=== PATIENT | male | born 1960 | race Caucasian/White ===

== ENCOUNTER 2017-10-30 17:29 | Observation (INO) | payer MEDICARE, OTHER ==
[~2017-10-30] VITALS: Ht 172.7 cm; Wt 71.2 kg
[~2017-10-30 17:29] MED LIST: ASPIRIN EC325 MG PO; ATENOLOL100 MG PO; CLOPIDOGREL75 MG PO; FLUOXETINE HCL20 MG PO; LISINOPRIL-HCT1 EAC2; LOVASTATIN40 MG PO; METFORMIN HCL1000 MG PO; NEURONTIN100 MG PO; NITROGLYCERIN0.4 MG SL
[2017-10-30] MEDS ORDERED: ATENOLOL50 MG PO (21:26)
[2017-10-30] MEDS ORDERED: LISINOPRIL-HCT1 EAC1 PO (21:27)
--- NOTE | 2017-10-30 22:23 | NUR ---
REPORT RECEIVED FROM ED RN, AVERY. PT ARRIVED TO FLOOR VIA STRETCHER, WAS ABLE TO STAND AND TRANSFER SELF TO BED. PT IS ALERT/ORIENTED, OLD LEFT FACIAL DROOP PRESENT. STRENGTH EQUAL BILATERALLY IN UPPER AND LOWER EXTREMITIES. PT HAS NEUROPATHY IN BLE, REPORTS TINGLING. REQUESTS HIS GABABPENTIN, CALLED DR. MUSA AND GOT THIS ADDED TO ORDERS. LUNGS CLEAR, RA. HR REGULAR. BOWEL TONES ACTIVE, DENIES NAUSEA. DENIES DIZZINESS. IV PATENT, IVF STARTED. SKIN GROSSLY INTACT, SMALL RASH NOTED TO CHEST. PT REQUESTS SOMETHING TO EAT, WILL PROVIDE SANDWICH. PT INSTRUCTED TO USE CALL LIGHT, DENIES FURTHER REQUESTS AT THIS TIME.
--- NOTE | 2017-10-31 01:12 | NUR ---
PT SLEEPING, WOKE EASILY. ASSESSMENT COMPLETED. NEURO ASSESSMENT UNCHANGED FROM PREVIOUS. WHEEZE NOTED IN UPPER/LOWER RIGHT LOBES, RA. NO OTHER CHANGES FROM PREVIOUS ASSESSMENT. WILL CONTINUE TO MONITOR.
--- NOTE | 2017-10-31 03:08 | NUR ---
CHECKED IN ON PT WHO APPEARS TO BE SLEEPING, NO APPARENT DISTRESS. RR:19, RESPIRATIONS EVEN AND UNLABORED. SPO2: 95% ON RA. WILL ALLOW FOR REST AND CONTINUE TO MONITOR.
--- NOTE | 2017-10-31 04:55 | NUR ---
CHECKED IN ON PT WHO WAS AWAKE AND WATCHING TV. UP TO BATHROOM WITH SBA, VOIDED 450ML AND THEN RETURNED TO BED. ASSESSMENT COMPLETED. NEURO CHECK UNCHANGED. LUNGS SOUND CLEAR, SLIGHTLY DIM IN BASES, REMAINS ON RA. NO OTHER CHAGES FROM PREVIOUS ASSESSMENT. PT PROVIDED WITH COFFEE PER REQUEST AND NOW DENIES FURTHER NEEDS. WILL CONTINUE TO MONITOR.
--- NOTE | 2017-10-31 05:41 | NUR ---
IN TO START NEW IV, 20G PLACED ON SECOND ATTEMPT IN RIGHT WRIST USING ASEPTIC TECHNIQUE. PT TOLERATED WELL. IVF SWITCHED TO NEW IV SITE AND FIELD START SALINE LOCKED.
--- NOTE | 2017-10-31 08:12 | NUR ---
PATIENT AWAKE AND EATING BREAKFAST AT THIS TIME. PT IN GOOD SPIRITS. PT ABLE TO TAKE ORAL PILLS WITHOUT DIFFICUTLY. CBG 113, NO INSULIN REQUIRED. ASSESSMENT COMPLETE AT THIS TIME.
--- NOTE | 2017-10-31 14:57 | NUR ---
PATIENT UP TO SHOWER AT THIS TIME. DR. MUSA IN ROOM TO SEE PATIENT. PT WILL BE SENT HOME THIS AFTERNOON. TELE D/C AT THIS TIME.
[2017-10-31] MEDS ORDERED: ASPIRIN EC325 MG PO (14:59)
[2017-10-31] MEDS ORDERED: LOVASTATIN40 MG PO (14:59)
[2017-10-31] MEDS ORDERED: METFORMIN HCL1000 MG PO (15:00)
[2017-10-31] MEDS ORDERED: AMLODIPINE BESYL5 MG PO (15:00)
--- NOTE | 2017-11-01 21:21 | EKG ---
[facility] [address] [place] [address] Signed Normal sinus rhythm Nonspecific ST abnormality Abnormal ECG When compared with ECG of 02-DEC-2016 15:56, No significant change was found Confirmed by HELADIO MUSA MD ([id number]) on 11/01/2017 9:20:57 PM Electronically Signed By: HELADIO MUSA MD 11/01/172120 PATIENT NAME: MADDOXFIDE Electrocardiogram DATE OF : 60 PHYSICIAN: HELADIO MUSA MD REPORT #: [id number] REPORT IS CONFIDENTIAL AND NOT TO BE RELEASED WITHOUT AUTHORIZATION
[2018-03-29] MEDS ORDERED: DULCOLAX STOOL100 M1 PO (12:00)
== END 2017-10-31 16:05 | disposition home or self-care (01) ==
LOC: ED 17:29 → CCU 17:30
PROVIDERS: ADMIT Internal Medicine
DX: G45.9 Transient cerebral ischemic attack, unspecified (principal); I69.322 Dysarthria following cerebral infarction; I69.392 Facial weakness following cerebral infarction; I25.2 Old myocardial infarction; F17.200 Nicotine dependence, unspecified, uncomplicated; E11.51 Type 2 diabetes mellitus with diabetic peripheral angiopathy without gangrene; I25.10 Atherosclerotic heart disease of native coronary artery without angina pectoris; I10 Essential (primary) hypertension; E78.5 Hyperlipidemia, unspecified; F32.9 Major depressive disorder, single episode, unspecified; D50.9 Iron deficiency anemia, unspecified; E11.40 Type 2 diabetes mellitus with diabetic neuropathy, unspecified; Z79.84 Long term (current) use of 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; Z66 Do not resuscitate; Z95.1 Presence of aortocoronary bypass graft; Z95.5 Presence of coronary angioplasty implant and graft; Z79.82 Long term (current) use of aspirin; Z79.899 Other long term (current) drug therapy
CPT/HCPCS: 36415; 70450; 70496; 70498; 71045; 80053; 80061; 81001; 83036; 83605; 84484; 85025; 85610; 85730; 86850; 86900; 86901; 93005; 93010; 96360; 96361; 99285; G0008; G0378; J7120; Q9967

== ENCOUNTER 2018-02-05 10:14 | Inpatient (IN) | payer MEDICARE, OTHER ==
[~2018-02-05] VITALS: Ht 172.7 cm; Wt 71.5 kg
--- OUTSIDE RECORDS SUMMARY | ~2018-02-05 | XMS | Clinical Summary ---
Demographics + + + | Address | [address] | | | [place] [address] | + + + | Home Phone | | + + + | Preferred Language | Unknown | + + + | Marital Status | | + + + | Zoroastrianism Affiliation | Unknown | + + + | Race | Unknown | + + + | Ethnic Group | Unknown | + + + Author + + + | Author | [employer] | + + + | Organization | [facility] | + + + | Address | Unknown | + + + | Phone | Unavailable | + + + Support + + + + + | Name | Relationship | Address | Phone | + + + + + | Edita Cherry | ECON | [address] | | | | | [place] | | | | | [phone] | | + + + + + | Masood Maddox | ECON | Unknown | | + + + + + Care Team Providers + +------+ + | Care Fiber Product Cutting Machine Operator Name | Role | Phone | + +------+ + | Gonzalo Mckeon MD | PP | Unavailable | + +------+ + Allergies + + + + + + | Active Allergy | Reactions | Severity | Noted | Comments | | | | | Date | | + + + + + + | Amoxicillin | Diarrhea | Low | 04/20/20 | | | | | | 16 | | + + + + + + Current Medications + + +---------+---------+------+------+-------+ | Prescription | Sig. | Disp. | Refills | Star | End | Statu | | | | | | t | Date | s | | | | | | Date | | | + + +---------+---------+------+------+-------+ | atenolol | Take 100 mg by mouth | | | | | Activ | | (TENORMIN) 100 MG | 2 (two) times | | | | | e | | tablet | daily. | | | | | | + + +---------+---------+------+------+-------+ | FLUoxetine | Take 40 mg by mouth | | | | | Activ | | (PROZAC) 40 MG | daily. | | | | | e | | capsule | | | | | | | + + +---------+---------+------+------+-------+ | lovastatin | Take 40 mg by mouth | | | | | Activ | | (MEVACOR) 40 MG | nightly. | | | | | e | | tablet | | | | | | | + + +---------+---------+------+------+-------+ | nitroGLYCERIN | Place 0.4 mg under | | | | | Activ | | (NITROSTAT) 0.4 MG | the tongue every 5 | | | | | e | | SL tablet | (five) minutes as | | | | | | | | needed for Chest | | | | | | | | pain. | | | | | | + + +---------+---------+------+------+-------+ | metFORMIN | Take 1 tablet by | | | 05/2 | | Activ | | (GLUCOPHAGE) 1000 MG | mouth daily. | | | 7/20 | | e | | tablet | | | | 15 | | | + + +---------+---------+------+------+-------+ | ascorbic acid | Take 500 mg by mouth | | | | | Activ | | (VITAMIN C) 500 MG | daily. | | | | | e | | tablet | | | | | | | + + +---------+---------+------+------+-------+ | Calcium | Take 600 mg by mouth | | | | | Activ | | Carb-Cholecalciferol | daily. | | | | | e | | 600-800 MG-UNIT | | | | | | | | TABS | | | | | | | + + +---------+---------+------+------+-------+ | | Take 1 tablet by | | | | | Activ | | lisinopril-hydrochlo | mouth daily. | | | | | e | | rothiazide | | | | | | | | (PRINZIDE,ZESTORETIC | | | | | | | | ) 20-25 MG per | | | | | | | | tablet | | | | | | | + + +---------+---------+------+------+-------+ | glipiZIDE | Take 5 mg by mouth 2 | | | | | Activ | | (GLUCOTROL) 5 MG | (two) times daily | | | | | e | | tablet | before meals. | | | | | | + + +---------+---------+------+------+-------+ | gabapentin | Take 2 capsules by | 90 | 0 | 02/2 | | Activ | | (NEURONTIN) 100 MG | mouth 3 (three) | capsule | | 6/20 | | e | | capsule | times daily. | | | 17 | | | + + +---------+---------+------+------+-------+ | hydrALAZINE | Take 1 tablet by | 90 | 0 | 02/2 | | Activ | | (APRESOLINE) 50 MG | mouth 3 (three) | tablet | | 6/20 | | e | | tablet | times daily. | | | 17 | | | + + +---------+---------+------+------+-------+ | ferrous sulfate, | Take 1 tablet by | 60 | 0 | 02/2 | | Activ | | 65 FE, 324 (65 FE) | mouth 2 (two) times | tablet | | 6/20 | | e | | MG EC tablet | daily with meals. 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 55yo WM, with exertional | | shortness of breath, fatigue. He has poor balance, states some | | form of neuropathy, and relates with the assistance of a walker. | | Unfortunately he continues to smoke, approximately one pack of | | cigars per day. Long history of smoking. He is known to have | | coronary artery disease, distant bypass surgery, and then | | angioplasty and stenting on 2 different occasions. He does not | | have significant edema, there is no orthopnea or PND. He is | | unaware of any palpitations, or lightheadedness. Denies any | | significant chest discomfort. He recently ran out of Plavix. | | Despite his cardiac history, he denies any history of congestive | | heart failure, congenital heart disease, rheumatic heart disease, | | palpitations, or syncope. Today we obtained his previous | | medical records. We had him resume his Plavix 75 mg daily, this | | due to his stents burden. Smoking cessation is strongly | | encouraged. Labs are requested. We'll have him back after labs | | have been obtained, other recommendations to follow.Hx CABG (St | | Mathieu Murphys): 06/10/2006, CABG*4 (HINES to LAD, radial | | artery graft to LPLA, SVG to D1/OM1.Hx PCI/stent: 07/15/2009, SVG | | to D1 (4.0*16mm, 3.5*32mm Taxus Liberte NIRU's). | | 03/03/2015, SVG to D1 (4.0*16mm Promus Premier, 4.0*22 | | Resolute Integrity, 4.0*20mm Promus Premier, 2.25*16mm Promus | | Premier).Hx Pacemaker/ICD: noLast Cath, 03/03/2015: LAD/LCx | | occluded, severe RCA. HINES to LAD patent, radial graft to LPLA | | occluded, SVG to D1/OM1 severe in-stent restenosis. SVG | | stented.Last Echo: naLast Stress Test, 03/02/2015: Lexiscan, | | anterior ischemia, LVEF 48%.ECG, 03/04/2015: sinus rhythm, 65bpm, | | PRWP, IVCD, diffuse non-spec ST-T changes. | + + + + + | COPD (chronic obstructive pulmonary disease) | 01/29/2016 | + + + + + | Last Assessment & Plan: COPD, smoker. | + + + + + | Diabetes mellitus, type II | 03/01/2015 | + + + + + | Last Assessment & Plan: DM2, managed by PCP. | + + + + + | HTN (hypertension) | 03/01/2015 | + + + + + | Last Assessment & Plan: Hypertension, controlled, continue | | current meds at current dose (atenolol, lisinopril | | | | HCT). | + + + + + | Dyslipidemia | 03/01/2015 | + + + + + | Last Assessment & Plan: Hyperlipidemia, continue current meds | | at current dose (lovastatin). Lipid panel pending. | + + Resolved Problems + + + + | Problem | Noted | Resolved | | | Date | Date | + + + + | Chest pain | 03/01/20 | | | | 15 | 5 | + + + + Family History + + +------+ + | Medical History | Relation | Name | Comments | + + +------+ + | Cancer | Brother | | | + + +------+ + | Cancer | Mother | | | + + +------+ + | Diabetes type II | Mother | | | + + +------+ + | Hypertension | Mother | | | + + +------+ + | Cancer | Sister | | | + + +------+ + + +------+ + + | Relation | Name | Status | Comments | + +------+ + + | Brother | | Alive | CAD, CVA, DMII, HTN, Hyperlipidemia | + +------+ + + | Daughter | | Alive | | + +------+ + + | Father | | | CVA | | | | (Age | | | | | 65) | | + +------+ + + | Mother | | | lung CA (smoker),DMII,HTN | | | | (Age | | | | | 68) | | + +------+ + + | Sister | | Alive | | + +------+ + + Social History + +-------+ +--------+------+ | Tobacco Use | Types | Packs/Day | Years | Date | | | | | Used | | + +-------+ +--------+------+ | Current Every Day | | 1 | 30 | | | Smoker | | | | | + +-------+ +--------+------+ + +---+---+---+ | Smokeless Tobacco: | | | | | Never Used | | | | + +---+---+---+ + + | Tobacco Cessation: Ready to Quit: No; Counseling Given: Yes | + + + + +---------+ + | Alcohol Use | Drinks/We | oz/Week | Comments | | | ek | | | + + +---------+ + | No | 0 | 0.0 | heavy drinker in past hx., quit @ age: 28 | | | Standard | | yrs. old | | | drinks or | | | | | | | | | | equivalen | | | | | t | | | + + +---------+ + + + + | Sex Assigned at | Date Recorded | | | | + + + | Not on file | | + + + Last Filed Vital Signs + + + + | Vital Sign | Reading | Time Taken | + + + + | Blood Pressure | 141/65 | 12/07/2016 1:10 PM PST | + + + + | Pulse | 65 | 12/07/2016 1:10 PM PST | + + + + | Temperature | 36.7 C (98 F) | 12/07/2016 11:03 AM PST | + + + + | Respiratory Rate | 18 | 12/07/2016 11:03 AM PST | + + + + | Oxygen Saturation | 95% | 12/07/2016 11:03 AM PST | + + + + | Inhaled Oxygen | - | - | | Concentration | | | + + + + | Weight | 77.6 kg (171 lb 1.2 | 12/04/2016 4:24 AM PST | | | oz) | | + + + + | Height | 172.7 cm (5' 8") | 12/02/2016 10:09 PM PST | + + + + | Body Mass Index | 26.01 | 12/04/2016 4:24 AM PST | + + + + Plan of Treatment + + + + + | Health Maintenance | Due Date | Last Done | Comments | + + + + + | Diabetic Eye Exam | | | | | | 0 | | | + + + + + | Diabetic Foot Exam | | | | | | 0 | | | + + + + + | Microalbumin | | | | | Screening | 0 | | | + + + + + | Vaccine: | | | | | Dtap/Tdap/Td (1 - | 9 | | | | Tdap) | | | | + + + + + | Vaccine: | | | | | Pneumococcal 19-64 | 9 | | | | (PPSV23 only) Medium | | | | | Risk (1 of 1 - | | | | | PPSV23) | | | | + + + + + | Colon Cancer | | | | | Screening | 0 | | | | (Colonoscopy) | | | | + + + + + | Hemoglobin A1c | | 12/02/2016, 08/14/2016, | | | | 7 | 03/01/2015 | | + + + + + | Vaccine: Influenza | | | | | (Season Ended) | 8 | | | + + + + + Implants + +-------+------+ +--------+--------+--------+ | Implanted | Type | Area | Manufacture | Device | Expira | Model | | | | | r | | tion | / | | | | | | Identi | Date | Serial | | | | | | fier | | / Lot | + +-------+------+ +--------+--------+--------+ | Promus | Stent | | | | | / | | Premier-08/15/2016Implanted: | | | | | | /[id number] | | Qty: 1 on 08/15/2016 by | | | | | | [phone] | | Shalini Cabello MD | | | | | | | + +-------+------+ +--------+--------+--------+ Results Not on filefrom Last 3 Months Insurance + +--------+ +------+-------+ + | Payer | Benefi | Subscriber | Type | Phone | Address | | | t Plan | ID | | | | | | / | | | | | | | Group | | | | | + +--------+ +------+-------+ + | MEDICARE | MEDICA | xxxxxxxxxx | | | [address] | | | RE | | | | [place] [phone] | | | IP-OP | | | | | + +--------+ +------+-------+ + | MEDICAID | MEDICA | xxxxxxxx | | | [address] | | | ID | | | | [place] | | | [place] | | | | [phone] | + +--------+ +------+-------+ + + +--------+ +--------+ + + | Guarantor Name | Accoun | Relation to | Date | Phone | Billing Address | | | t Type | Patient | of | | | | | | | | | | + +--------+ +--------+ + + | FIDE MADDOX | Person | Self [birth year] Home: | [address] | | | al/Fam | | [phone] | [phone] [place] | | | [place] | | | [phone] | [phone] | + +--------+ +--------+ + +
--- OUTSIDE RECORDS SUMMARY | ~2018-02-05 | XMS | Clinical Summary ---
Demographics + + + | Address | [address] | | | [place] [address] | + + + | Home Phone | | + + + | Preferred Language | Unknown | + + + | Marital Status | | + + + | Mu-Ism Affiliation | Unknown | + + + | Race | Unknown | + + + | Ethnic Group | Unknown | + + + Author + + + | Author | [employer] | + + + | Organization | [facility] | + + + | Address | Unknown | + + + | Phone | Unavailable | + + + Support + + + + + | Name | Relationship | Address | Phone | + + + + + | Edita Cherry | ECON | [address] | | | | | [place] | | | | | [phone] | | + + + + + | Masood Maddox | ECON | Unknown | | + + + + + Care Team Providers + +------+ + | Care Bus Transportation Manager Name | Role | Phone | + [...] to follow.Hx CABG (St | | Mathieu Warnock): 06/10/2006, CABG*4 (HINES to LAD, radial | [...] Premier-08/15/2016Implanted: | | | | | | /[id number] | | Qty: 1 on 08/15/2016 by [...] RE | | | | [place] [address] | | | IP-OP | | | | | + +--------+ +------+-------+ + | MEDICAID | MEDICA | xxxxxxxx | | | [address] | | | ID | | | | [place] | | | [place] | | | | [phone] | + +--------+ +------+-------+ + + +--------+ [...] | [place] | | | [phone] | [phone] | + +--------+ +--------+ + +
--- OUTSIDE RECORDS SUMMARY | ~2018-02-05 | XMS | Clinical Summary ---
Demographics + + + | Address | [address] | | | [place] [address] | + + + | Home Phone | | + + + | Preferred Language | Unknown | + + + | Marital Status | | + + + | Anglican Affiliation | Unknown | + + + | Race | Unknown | + + + | Ethnic Group | Unknown | + + + Author + + + | Author | [facility] | + + + | Organization | [facility] | + + + | Address | Unknown | + + + | Phone | Unavailable | + + + Support + + + + + | Name | Relationship | Address | Phone | + + + + + | Edita Cherry | ECON | [address] | | | | | [place] | | | | | [phone] | | + + + + + | Masood Maddox | ECON | Unknown | | + + + + + Care Team Providers + +------+ + | Care Repairer Evaporator Name | Role | Phone | + [...] to follow.Hx CABG (St | | Mathieu Erwin): 06/10/2006, CABG*4 (HINES to LAD, radial | [...] Premier-08/15/2016Implanted: | | | | | | /[id number] | | Qty: 1 on 08/15/2016 by [...] RE | | | | [place] [address] | | | IP-OP | | | | | + +--------+ +------+-------+ + | MEDICAID | MEDICA | xxxxxxxx | | | [address] | | | ID | | | | [place] | | | [place] | | | | [phone] | + +--------+ +------+-------+ + + +--------+ [...] | [place] | | | [address] | [phone] | + +--------+ +--------+ + +
[~2018-02-05 10:14] MED LIST changes: +AMLODIPINE BESYL5 MG PO; +ATENOLOL50 MG PO; +LISINOPRIL-HCT1 EAC1 PO
[2018-02-05] MEDS ORDERED: ASPIRIN81 MG PO (10:44)
[2018-02-05] MEDS ORDERED: NEURONTIN300 MG PO (10:45)
--- NOTE | 2018-02-05 14:28 | NUR ---
BLOOD RECEIVED FROM LAB AND VERIFIED. CONSENT SIGNED. PT VERBALIZED CONSENT AND UNDERSTANDING AGAIN. BLOOD VERIFIED BY MAXIMILIANO HERNANDEZ AND MAXIMILIANO CLIFTON AT BEDSIDE. VS STABLE.
--- NOTE | 2018-02-05 14:36 | NUR ---
VS STABLE AT 15 MINUTES. PT DENIES ANY DISCOMFORT, ITCHING, ETC. WENT BACK TO RESTING WITH EYES CLOSED.
--- NOTE | 2018-02-05 16:30 | NUR ---
BLOOD RECEIVED FROM LAB. CONSENT VERIFIED. WITNESSED BY MAXIMILIANO HERNANDEZ AND MAXIMILIANO ZHOU. VS STABLE.
--- NOTE | 2018-02-05 18:43 | NUR ---
PT SITTING UP IN BED. ENCOURAGED BOWEL PREP. ALMOST COMPLETED FIRST BOTTLE. DENIES OTHER NEEDS AT THIS TIME. CALL LIGHT IN REACH.
--- NOTE | 2018-02-05 19:40 | NUR ---
REPORT RECEIVED FROM MARY. PATIENT AWAKE IN BED ALERT AND ORIENTED. REPORT NO PAIN AT THIS TIME. APPARENT DISTRESS NOTED.
--- NOTE | 2018-02-05 20:59 | EKG ---
[facility] [address] [facility] [place] [address] Signed Normal sinus rhythm Normal ECG When compared with ECG of 30-OCT-2017 17:38, No significant change was found Confirmed by HELADIO MUSA MD ([id number]) on 02/05/2018 8:59:29 PM Electronically Signed By: HELADIO MUSA MD 02/05/189 PATIENT NAME: TANFIDE ERNA Electrocardiogram DATE OF : 60 PHYSICIAN: HELADIO MUSA MD REPORT #: [id number] REPORT IS CONFIDENTIAL AND NOT TO BE RELEASED WITHOUT AUTHORIZATION
--- NOTE | 2018-02-05 21:10 | NUR ---
IN TO ROOM TO ASSESS PATIENT. PATIENT REPORT NO PAIN. SLIGHT RIGHT FACIAL DROOP AND GARBLE SPEECH NOTED. STRENGHT EQUAL BILATERALY. PATIENT IS ALERT AND ORIENTED. PATIENT IS WEAK. IV SITE PATENT AND FLUID INFUSING WELL. NO APPARENT DISTRESS NOTED. PATIENT IS GETTING BOWEL PREP FOR COLONOSCOPY IN THE AM.
--- NOTE | 2018-02-05 21:47 | NUR ---
CHARGE NURSE ROUNDING NOTE: PTWAS INCONTINENT OF BOWEL IN BED, SHOWERED, BED LINEN AND GOWN CHANGED, TOLEREATED WELL, TELE#[address], REQUIRES ONE PERSON ASSIST AND FWW, SLIGHTLY UNSTEADY GAIT WHEN HE FIRST GETS UP.. fALL PRECAUTIONS AND CALL NURSE BUTTONS INSTRUCTIONS REINFORCED. STATED UNDERSTANDING, BED ALARM ON
--- NOTE | 2018-02-06 00:05 | NUR ---
IN TO ROOM TO CHECK ON PATIENT. PATIENT HAD SOILED THE BED. PATIENT WAS CLEANED, LINENS CHANGED. PATIENT REPORTED THAT IT IS HARD FOR HIM TO MAKE TO THE BEDSIDE COMMODE ON TIME. PATIENT DENIES ANY COMPLAINTS. NO NEURO CHANGES. WILL CONTINUE TO MONITOR.
--- NOTE | 2018-02-06 01:12 | NUR ---
IN TO ROOM TO CHECK ON PATIENT. NO APPARENT DISTRESS NOTED. RR EVEN/UNLABORED.
--- NOTE | 2018-02-06 02:50 | NUR ---
PATIENT AWAKE AND WAS ASSISTED TO BEDSIDE COMMODE. PATIENT WAS CLEANED AND LINENS CHANGED. PATIENT ASSISTED BACK TO BED. SECOND ASSESSMENT DONE. NO NEURO CHANGES. PATIENT DENIES ANY DIZZINESS. RESTING IN BED FOR NOW. IV SITE PATENT. RESTING IN BED AT THIS TIME.
--- NOTE | 2018-02-06 04:56 | NUR ---
IN TO ROOM TO CHECK ON PATIENT. NO APPARENT DISTRESS NOTED. ALLOWED PATIENT TO REST
--- NOTE | 2018-02-06 05:48 | NUR ---
PATIENT HAD DONE WELL FOR THIS SHIFT. TOLERATED BOWEL WELL. NO NEURO CHANGES. SLIGHT RIGHT FACIAL DROOP NOTED (RESIDUE FROM PREVIOUS STROKE). WEAKNESS.I 1PERS ASSIST WITH FWW. COLONOSCOPY TO BE DONE THIS AM. CONSENT SIGNED IN CHART. CALL APPROPRIATELY. A&O. IV SITE PATENT AND FLUID INFUSING AT 75ML/HR.
--- NOTE | 2018-02-06 06:11 | NUR ---
pt up to bsc, continues to have liquid bm, voided, too. back to bed, requires one person assist and fww. IVF infusing w/o problems. Npo since midnight for am colonoscopy
--- NOTE | 2018-02-06 06:14 | NUR ---
PATIENT WAS ASSISTED TO BEDSIDE COMMODE. THEN BACK TO BED.
--- NOTE | 2018-02-06 07:00 | NUR ---
BEDSIDE HANDOFF REPORT RECEIVED FROM PROTOTYPE SPECIAL BUILD RN. PT RESTING IN BED. PT DENIES OTHER NEEDS AT THIS TIME.
--- NOTE | 2018-02-06 08:15 | NUR ---
PT RESTING IN BED. PT DENIES PAIN. IV FLUIDS INFUSING LR AT 75 ML/HR. PT HYPOTENSIVE THIS AM, GIVEN AM BLOOD PRESSURE MEDICATIONS WITH SMALL SIP OF WATER. PT ON ROOM AIR, LUNG SOUNDS CLEAR, DENIES SOB. BOWEL TONES ACTIVE, NPO FOR PROCEDURE. PT WITHOUT EDEMA, CMS INTACT, PULSES PALPABLE. DISCUSSED PLAN OF CARE AND COLONOSCOPY THIS AM. PT DENIES OTHER NEEDS AT THIS TIME.
--- NOTE | 2018-02-06 08:19 | CONS ---
[facility] [address] [place], [place] [address] Signed DATE OF CONSULTATION: 02/05/2018 CHIEF COMPLAINT: Anemia. HISTORY OF PRESENT ILLNESS: Young is a 57-year-old gentleman with a long history of smoking with coronary artery disease and peripheral arterial disease, not only MIs, but multiple strokes. Earlier today, they felt he had some facial droop. He was weak and poor balance, so he was brought to the emergency room. In the emergency room, the CT scan of his head showed the old infarcts, but no new findings. Chest x-ray showed his cardiac stent, but his blood work showed that his hemoglobin was low at 6.9 with a mean cell volume low at 54. He has been admitted by the Internal Medicine Service and I have been asked to see him for both upper and lower endoscopy apparently, neither which he has ever had. PAST MEDICAL HISTORY: [place], stroke x12, diabetes, depression, neuropathy. PAST SURGICAL HISTORY: CABG x4, cardiac stents x2, and cholecystectomy. SOCIAL HISTORY: He likes to smoke cigarettes and marijuana. He does not drink. He lives here in town and he has a caregiver, Ingrid Marx, who is his niece at [phone]. His daughter actually is also here. He no longer drives. He lives in a trailer. Dr. Heladio Musa is his primary care provider. He prefers the [facility]. FAMILY HISTORY: Not reviewed. REVIEW OF SYSTEMS: The only thing new is his peripheral arterial disease. He said he needs a stent in his leg, but he did not have a ride over to Dr. Skelton in the [facility]. ALLERGIES: None. MEDICATIONS: 1. Lovastatin. 2. Metformin. 3. Fluoxetine. 4. Nitroglycerin. 5. Atenolol. Electronically Signed By: OLEG MAHER MD 02/06/18 0819 PATIENT NAME: YOUNG MADDOX CONSULTATION DATE OF : 60 REPORT #: [id number] PHYSICIAN: OLEG MAHER MD PCP: CHAYITO STAFFORD MD REPORT IS CONFIDENTIAL AND NOT TO BE RELEASED WITHOUT AUTHORIZATION [facility] [address] [place], [place] [address] Signed 6. Lisinopril. 7. Hydrochlorothiazide. 8. Aspirin. 9. Gabapentin. PHYSICAL EXAMINATION: VITAL SIGNS: His blood pressure is 167/55, heart rate 65, respiratory rate 16, temperature 98.2, he is 100% on room air. He is 5 feet 8 inches, and 71 kg. GENERAL: Young is a 57-year-old gentleman, who looks much older than his stated age. He has clearly been a long-time smoker. He has a full andersen and mustache. He answers appropriately, but slowly. LUNGS: Generally clear to auscultation. HEART: Regular rate and rhythm. ABDOMEN: Soft and nontender. RECTAL: Delayed at the time of endoscopy. LABORATORY DATA: His white blood count is 5.8, hemoglobin 6.9, mean cell volume is 54, BUN 16, creatinine 1.36. INR 0.9. LFTs negative. Troponin is negative. Albumin is 4.3. RADIOGRAPHIC STUDIES: Chest x-ray shows the cardiac stent. The CT angiogram and a CT of the head shows some old infarcts and no change to his atherosclerosis. ASSESSMENT AND PLAN: Young is a 57-year-old gentleman, who presents with symptomatic anemia. He is receiving 2 units of packed red blood cells per the Internal Medicine Service. I have been asked to see him for upper and lower endoscopy. I have explained both to Young detail. We have reviewed the risks and benefits. Also, we are going to need an anesthesia provider to help us with increased monitoring sedation given his medical history and his full face andersen. He has expressed understanding and would like to proceed. We have encouraged him to be more aggressive with a bowel prep. Hopefully, we will have him ready by 9 a.m. tomorrow. He has expressed understanding and agrees above plan. MD VERONIQUE Flores/MICKEYL /[id number] Electronically Signed By: OLEG MAHER MD 02/06/18 0819 PATIENT NAME: YOUNG MADDOX CONSULTATION DATE OF : 60 REPORT #: [id number] PHYSICIAN: OLEG MAHER MD PCP: CHAYITO STAFFORD MD REPORT IS CONFIDENTIAL AND NOT TO BE RELEASED WITHOUT AUTHORIZATION [facility] [address] [facility] [place], [place] [address] Signed cc: MD Oleg Ferreira MD Copies: HELADIO MUSA MD, ANDREW L MD ~ Electronically Signed By: OLEG MAHER MD 02/06/18 0819 PATIENT NAME: YOUNG MADDOX CONSULTATION DATE OF : 60 REPORT #: [id number] PHYSICIAN: OLEG MAHER MD PCP: CHAYITO STAFFORD MD REPORT IS CONFIDENTIAL AND NOT TO BE RELEASED WITHOUT AUTHORIZATION
--- NOTE | 2018-02-06 09:04 | NUR ---
PT TO COLONOSCOPY WITH DAYSURGERY RN.
--- NOTE | 2018-02-06 10:30 | NUR ---
02/06/18 1030 Helena Adler 0945 PT ARRIVED TO PACU ASLEEP ON 5L VIA NV.
--- NOTE | 2018-02-06 10:58 | NUR ---
PT RECEIVED FROM PACU. PT ON ROOM AIR. DENIES PAIN. PT HYPERTENSIVE, WILL CONTINUE TO MONITOR. PT REQUESTIGN TO ORDER LUNCH, ASSSISTED. PT DENIES SOB, LUNG SOUNDS CLEAR. BOWEL TONES ACTIVE. WITHOUT EDEMA, CMS INTACT. IV FLUIDS INFUSING LR AT 75. PT DENIES OTHER NEEDS AT THIS TIME.
--- NOTE | 2018-02-06 11:48 | NUR ---
DID PATIENT'S BLOOD SUGAR CHECK ALSO PATIENT ASKED FOR A SODA POP WENT AND GOT IT. NOW HE IS EATING HIS LUNCH IN BED.
--- NOTE | 2018-02-06 12:50 | NUR ---
PT RESTING IN BED. PT ON ROOM AI. SALINE LOCKED. VSS. PT DENIES NEEDS AT THIS TIME.
--- NOTE | 2018-02-06 13:42 | NUR ---
PT UP WALKING LAPS IN HALLWAY. USING FWW WITH CELY GEORGE. APPEARS TO BE TOLERATING WELL.
--- NOTE | 2018-02-06 13:46 | NUR ---
PT WALKING IN GASPAR WITH NURSE AIDE.
--- NOTE | 2018-02-06 14:15 | NUR ---
DISCUSSED WITH MD POSSIBLE DISCHARGE THIS EVENING. VERBAL ORDER FOR CBC TO BE DRAWN AT 1500, IF LABS STABLE PT CAN DISCHARGE. DISCUSSED WITH PT, AGREEABLE TO PLAN.
--- NOTE | 2018-02-06 15:37 | OR ---
[facility] [address] [place], [place] [address] Signed DATE OF OPERATION: 02/06/2018 SURGEON: Oleg Maher MD PREOPERATIVE DIAGNOSIS: Anemia. POSTOPERATIVE DIAGNOSES: 1. Mild to moderate hemorrhagic punctate gastritis. 2. Unspecified mass ileocecal valve. 3. A 4 mm polyp at 15 cm. 4. Minimal to moderate internal hemorrhoids. PROCEDURES: 1. EGD with CLOtest and biopsies of the antrum. 2. Colonoscopy with hot biopsy. ESTIMATED BLOOD LOSS: None. INDICATIONS: Young is a 57-year-old gentleman, who had previous trouble with coronary artery disease as well as peripheral arterial disease. He has had a CABG and cardiac stents and he has had several heart attacks and several strokes. He lives in a trailer with his caregiver and it looks like he had some facial droop and his balance was poor and he felt weak. They brought him to the emergency room and they found out that his hemoglobin was low at 6.9 with a mean cell volume of 54. The chest x-ray was fine and the CT of his head was fine. He was admitted to the Internal Medicine Service and received a couple units of blood. I was then asked to see him as a general surgeon on-call for upper and lower endoscopy. When I met with Young, he told me he has never had previous endoscopy. To his knowledge, there is no family history of colon cancer or polyps. I explained to him the nature of the 2 tests along with the risks including, but not limited to, gas bloating, crampy abdominal pain, bleeding, perforation, requiring surgery, and missed diagnosis. Also, because of his advanced medical issues and his full face and thick andersen, we asked that an anesthesia provider help us with increased monitoring sedation with propofol. He had expressed understanding and wished to proceed. PROCEDURE NOTE: Young was taken into our endoscopy suite and placed in the supine semi-recumbent position. He was given IV sedation with propofol per our nurse beef farmer. A bite Electronically Signed By: OLEG MAHER MD 02/06/18 1537 PATIENT NAME: YOUNG MADDOX OPERATIVE REPORT DATE OF : 60 REPORT #: [id number] PHYSICIAN: OLEG MAHER MD PCP: CHAYITO STAFFORD MD REPORT IS CONFIDENTIAL AND NOT TO BE RELEASED WITHOUT AUTHORIZATION [facility] [address] [place] [id number] Signed block was utilized for the upper endoscopy. The adult gastroscope was introduced and advanced out into the third portion of the duodenum under direct visualization of camera without difficulty. The duodenum and pyloric channel were unremarkable. However, the antrum showed multiple areas of shallow erosions with punctate hemorrhagic areas consistent with gastritis. We took biopsies of the antrum for CLOtest as well as pathologic review. The incisura, body and fundus of the stomach were unremarkable. Upon retroflexion of the scope, there was no evidence of hiatal hernia. No gastric or esophageal varices. The scope was withdrawn up through the area of GE junction, which was compliant without stricture. The Z-line was intact. There was no Roa mucosa. No distal esophagitis. The middle and upper esophagus were unremarkable. After this, the gas was suctioned out and the gastroscope removed. Gil tolerated the procedure quite well. Gil was then rotated into the left lateral decubitus position. He was maintained on IV sedation with IV propofol. A digital rectal exam was performed and this was unremarkable. He does have some induration to the prostate. The adult colonoscope was introduced and advanced all around into the cecum under direct visualization the camera without difficulty. As is common, he has a prominent ileocecal valve, but it rather being smooth, it had areas that were rough and a little concerning, so we went ahead and took multiple biopsies of the ileocecal valve for pathologic review. The scope was then slowly withdrawn and we found a tiny polyp at 15 cm at the top of the rectum and we had removed that with hot biopsy forceps, but that specimen was lost. After this, the scope had been retroflexed and he does have minimal to moderate internal hemorrhoid tissue. The gas was then suctioned out and the colonoscope removed. Young tolerated the procedure quite well. RECOMMENDATIONS: Young will be returned to his room to the Internal Medicine Service. We will increase his diet. We will check a CEA level. He may need a CT scan in the future. He will also follow up at my office. Oleg Maher MD ALB/MODL /[id number] Electronically Signed By: OLEG MAHER MD 02/06/18 1537 PATIENT NAME: YOUNG MADDOX OPERATIVE REPORT DATE OF : 60 REPORT #: [id number] PHYSICIAN: OLEG MAHER MD PCP: CHAYITO STAFFORD MD REPORT IS CONFIDENTIAL AND NOT TO BE RELEASED WITHOUT AUTHORIZATION [facility] [address] [place] [address] Signed cc: MD Isaias Flores MD Copies: OLEG MAHER MD, LOHITH VEERAPPA MD ~ Electronically Signed By: LOEG MAHER MD 02/06/18 1537 PATIENT NAME: YOUNG MADDOX OPERATIVE REPORT DATE OF : 60 REPORT #: [id number] PHYSICIAN: OLEG MAHER MD PCP: CHAYITO STAFFORD MD REPORT IS CONFIDENTIAL AND NOT TO BE RELEASED WITHOUT AUTHORIZATION
[2018-02-06] MEDS ORDERED: NICOTINE1 EAC1 TD (16:29)
[2018-02-06] MEDS ORDERED: OMEPRAZOLE20 MG PO (16:30)
--- NOTE | 2018-02-06 17:19 | NUR ---
DISCHARGE INSTRUCTIONS COMPLETED WITH PT. REVIEWED FOLLOW UP APPOINTMENTS FOR DR. MAHER AND DR. MUSA. MEDICATIONS REVIEWED. PT DRESSED, BELONINGS COLLECTED. PT EATING DINNER, NO SS INSULIN COVERAGE REQUIRED. PT AWAITING RIDE HOME.
[2018-03-29] MEDS ORDERED: DULCOLAX STOOL100 M1 PO (12:00)
== END 2018-02-06 17:45 | disposition home or self-care (01) | DRG 378 ==
LOC: ED 10:14 → MS 11:58
PROVIDERS: Colon & Rectal Surgery; ADMIT Internal Medicine
PROC: 0DB78ZX Excision of Stomach, Pylorus, Via Natural or Artificial Opening Endoscopic, Diagnostic (ICD-10-PCS; principal; 2018-02-06 09:00)
PROC: 0DBC8ZX Excision of Ileocecal Valve, Via Natural or Artificial Opening Endoscopic, Diagnostic (ICD-10-PCS; 2018-02-06 09:00)
DX: K29.71 Gastritis, unspecified, with bleeding (principal); G45.9 Transient cerebral ischemic attack, unspecified; D50.0 Iron deficiency anemia secondary to blood loss (chronic); K63.89 Other specified diseases of intestine; K63.5 Polyp of colon; T39.395A Adverse effect of other nonsteroidal anti-inflammatory drugs [NSAID], initial encounter; K64.8 Other hemorrhoids; I10 Essential (primary) hypertension; F17.210 Nicotine dependence, cigarettes, uncomplicated; R47.1 Dysarthria and anarthria; F80.2 Mixed receptive-expressive language disorder; E78.5 Hyperlipidemia, unspecified; R26.81 Unsteadiness on feet; I25.2 Old myocardial infarction; E11.51 Type 2 diabetes mellitus with diabetic peripheral angiopathy without gangrene; E11.42 Type 2 diabetes mellitus with diabetic polyneuropathy; I25.10 Atherosclerotic heart disease of native coronary artery without angina pectoris; Z95.1 Presence of aortocoronary bypass graft; Z95.5 Presence of coronary angioplasty implant and graft; Z66 Do not resuscitate; Z86.73 Personal history of transient ischemic attack (TIA), and cerebral infarction without residual deficits; Z79.84 Long term (current) use of 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; Z79.82 Long term (current) use of aspirin; Z79.899 Other long term (current) drug therapy
CPT/HCPCS: 36415; 36430; 70450; 70496; 70498; 71045; 80048; 80053; 82378; 82607; 82728; 82746; 83540; 84466; 84484; 85025; 85610; 85730; 86677; 86850; 86900; 86901; 86920; 88305; 93005; 93010; 94640; 94667; 94668; J2250; J2370; J2704; J3010; J7120; P9016; Q9967

== ENCOUNTER 2018-02-08 13:11 | Inpatient (IN) | payer MEDICARE, OTHER ==
[~2018-02-08] VITALS: Ht 172.7 cm; Wt 71.4 kg
--- OUTSIDE RECORDS SUMMARY | ~2018-02-08 | XMS | Clinical Summary ---
Demographics + + + | Address | [address] | | | [place] [address] | + + + | Home Phone | | + + + | Preferred Language | Unknown | + + + | Marital Status | | + + + | Jain Affiliation | Unknown | + + + | Race | Unknown | + + + | Ethnic Group | Unknown | + + + Author + + + | Author | Juana Zipmark | + + + | Organization | [facility] [employer] | + + + | Address | Unknown | + + + | Phone | Unavailable | + + + Support + + + + + | Name | Relationship | Address | Phone | + + + + + | Edita Cherry | ECON | [address] | | | | | [place] | | | | | [phone] | | + + + + + | Masood Maddox | ECON | Unknown | | + + + + + Care Team Providers + +------+ + | Care Associate Theatre Professor Name | Role | Phone | + [...] to follow.Hx CABG (St | | Mathieu [place]): 06/10/2006, CABG*4 (HINES to LAD, radial | [...] Premier-08/15/2016Implanted: | | | | | | /[id number] | | Qty: 1 on 08/15/2016 by [...] RE | | | | [place] [address] | | | IP-OP | | | | | + +--------+ +------+-------+ + | MEDICAID | MEDICA | xxxxxxxx | | | [address] | | | ID | | | | ABDULAZIZ [place]ARDY | | | [place] | | | | [address] | + +--------+ +------+-------+ + + +--------+ [...] | danuta | | | [address] | [phone] | + +--------+ +--------+ + +
--- OUTSIDE RECORDS SUMMARY | ~2018-02-08 | XMS | Clinical Summary ---
Demographics + + + | Address | [address] | | | [place] [address] | + + + | Home Phone | | + + + | Preferred Language | Unknown | + + + | Marital Status | | + + + | Moravian Affiliation | Unknown | + + + | Race | Unknown | + + + | Ethnic Group | Unknown | + + + Author + + + | Author | Juana [employer] Attorneys | + + + | Organization | [facility] [employer] [facility] | + + + | Address | Unknown | + + + | Phone | Unavailable | + + + Support + + + + + | Name | Relationship | Address | Phone | + + + + + | Edita Cherry | ECON | [address] | | | | | [place] | | | | | [address] | | + + + + + | Masood Maddox | ECON | Unknown | | + + + + + Care Team Providers + +------+ + | Care Bobbin Coil Winder Name | Role | Phone | + [...] to follow.Hx CABG (St | | Mathieu [place]): 06/10/2006, CABG*4 (HINES to LAD, radial | [...] Premier-08/15/2016Implanted: | | | | | | /[id number] | | Qty: 1 on 08/15/2016 by [...] RE | | | | [place] [address] | | | IP-OP | | | | | + +--------+ +------+-------+ + | MEDICAID | MEDICA | xxxxxxxx | | | [address] | | | ID | | | | ABDULAZIZ [place]ARDY | | | [place] | | | | [address] | + +--------+ +------+-------+ + + +--------+ [...] | danuta | | | [address]5 | [phone] | + +--------+ +--------+ + +
--- OUTSIDE RECORDS SUMMARY | ~2018-02-08 | XMS | Clinical Summary ---
Demographics + + + | Address | [address] | | | [place] [address] | + + + | Home Phone | | + + + | Preferred Language | Unknown | + + + | Marital Status | | + + + | Presybeterian Affiliation | Unknown | + + + | Race | Unknown | + + + | Ethnic Group | Unknown | + + + Author + + + | Author | Juana BeanStockd | + + + | Organization | [facility] [employer] | + + + | Address | Unknown | + + + | Phone | Unavailable | + + + Support + + + + + | Name | Relationship | Address | Phone | + + + + + | Edita Cherry | ECON | [address] | | | | | [place] | | | | | [address] | | + + + + + | Masood Maddox | ECON | Unknown | | + + + + + Care Team Providers + +------+ + | Care Engineering Surveyor Name | Role | Phone | + [...] to follow.Hx CABG (St | | Mathieu [place]): 06/10/2006, CABG*4 (HINES to LAD, radial | [...] Premier-08/15/2016Implanted: | | | | | | /[id number] | | Qty: 1 on 08/15/2016 by [...] RE | | | | [place] [id number] | | | IP-OP | | | | | + +--------+ +------+-------+ + | MEDICAID | MEDICA | xxxxxxxx | | | [address] | | | ID | | | | ABDULAZIZ [place] | | | [place] | | | | [address] | + +--------+ +------+-------+ + + +--------+ [...] | danuta | | | [address] | [phone] | + +--------+ +--------+ + +
[~2018-02-08 13:11] MED LIST changes: +ASPIRIN81 MG PO; +NEURONTIN300 MG PO; +NICOTINE1 EAC1 TD; +OMEPRAZOLE20 MG PO
[2018-02-08] MEDS ORDERED: FLUOXETINE HCL40 MG PO (18:02)
--- NOTE | 2018-02-08 20:54 | EKG ---
[facility] [address] [facility] [place] [address] Signed Sinus bradycardia Nonspecific ST and T wave abnormality Abnormal ECG When compared with ECG of 05-FEB-2018 10:29, No significant change was found Confirmed by HELADIO MUSA MD ([id number]) on 02/08/2018 8:54:32 PM Electronically Signed By: HELADIO MUSA MD 02/08/182053 PATIENT NAME: FIDE MADDOX Electrocardiogram DATE OF : 60 PHYSICIAN: HELADIO MUSA MD REPORT #: [id number] REPORT IS CONFIDENTIAL AND NOT TO BE RELEASED WITHOUT AUTHORIZATION
[2018-02-09] MEDS ORDERED: GLUCOPHAGE1000 MG PO (13:52)
[2018-02-10] MEDS ORDERED: NICOTINE1 EAC1 TD (12:43)
[2018-02-10] MEDS ORDERED: PLAVIX75 MG PO (12:44)
[2018-03-29] MEDS ORDERED: DULCOLAX STOOL100 M1 PO (12:00)
== END 2018-02-11 13:05 | DRG 65 ==
LOC: ED 13:11 → MS 17:27
PROVIDERS: ADMIT Internal Medicine
DX: I63.511 Cerebral infarction due to unspecified occlusion or stenosis of right middle cerebral artery (principal); G81.91 Hemiplegia, unspecified affecting right dominant side; R47.1 Dysarthria and anarthria; F17.210 Nicotine dependence, cigarettes, uncomplicated; I65.02 Occlusion and stenosis of left vertebral artery; I65.23 Occlusion and stenosis of bilateral carotid arteries; R29.709 NIHSS score 9; I66.02 Occlusion and stenosis of left middle cerebral artery; I65.1 Occlusion and stenosis of basilar artery; I66.11 Occlusion and stenosis of right anterior cerebral artery; I25.10 Atherosclerotic heart disease of native coronary artery without angina pectoris; E78.5 Hyperlipidemia, unspecified; D12.0 Benign neoplasm of cecum; F39 Unspecified mood [affective] disorder; E11.42 Type 2 diabetes mellitus with diabetic polyneuropathy; Z66 Do not resuscitate; Z95.1 Presence of aortocoronary bypass graft; Z95.5 Presence of coronary angioplasty implant and graft; Z87.19 Personal history of other diseases of the digestive system; Z79.84 Long term (current) use of 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; Z79.82 Long term (current) use of aspirin; Z79.899 Other long term (current) drug therapy
CPT/HCPCS: 36415; 70450; 71045; 80053; 80061; 83036; 85025; 86850; 86900; 86901; 92610; 93005; 93010; 97110; 97116; 97163; 97166; 97535; J7120

== ENCOUNTER 2018-04-03 14:10 | Emergency (ER) | payer MEDICARE, OTHER ==
[~2018-04-03] VITALS: Ht 172.7 cm; Wt 73.9 kg
[~2018-04-03 14:10] MED LIST changes: +DULCOLAX STOOL100 M1 PO; +FLUOXETINE HCL40 MG PO; +GLUCOPHAGE1000 MG PO; +PLAVIX75 MG PO
== END 2018-04-03 16:49 | disposition home or self-care (01) ==
LOC: ED 14:10
DX: K59.00 Constipation, unspecified (principal); D64.9 Anemia, unspecified; J44.9 Chronic obstructive pulmonary disease, unspecified; I25.2 Old myocardial infarction; E11.40 Type 2 diabetes mellitus with diabetic neuropathy, unspecified; F32.9 Major depressive disorder, single episode, unspecified; Z79.01 Long term (current) use of anticoagulants; Z86.73 Personal history of transient ischemic attack (TIA), and cerebral infarction without residual deficits; Z87.891 Personal history of nicotine dependence; Z79.899 Other long term (current) drug therapy; Z79.84 Long term (current) use of 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
CPT/HCPCS: 74022; 80053; 81001; 83690; 85025; 99284

== ENCOUNTER 2018-04-12 08:43 | Inpatient (IN) | payer MEDICARE, OTHER ==
[~2018-04-12] VITALS: Ht 172.7 cm; Wt 71.8 kg
--- NOTE | 2018-04-12 13:40 | NUR ---
PATIENT ARRIVES TO CCU AROUND 1315. PT IS VERY DROWSY BUT AWAKENS SOME. SP02 IS 95% ON ROOM AIR. PT NOTED TO BE SNORING AT TIMES. PT ABLE TO STATE HIS NAME AND , BUT AGAIN, QUICKLY FALLS BACK ASLEEP. HR 60s, SINUS RHYTHM AT THIS TIME. BP IS 144/60 (80). PT ARRIVES WITH ONLY SOME CLOTHING IN ROOM AND GLASSES ON. PT APPEARS TO HAVE OLD FOOD ALL THROUGH HIS NOGUEIRA. SOME EXP WHEEZES NOTED IN UPPER LOBES. PT WAS NOTED TO HAVE VOIDED IN THE ER IN THE BED PRIOR TO ARRIVING TO CCU. IVF STARTED AT 125 ML/HR AT THIS TIME. IV ANTIBIOTICS TO BE STARTED AFTER LAB DRAWS BLOOD CULTURES AND LACTIC ACID LEVEL, WHICH THEY ARE IN ROOM DRAWING CURRENTLY. CONTINUE TO MONITOR GRANT. CALL LIGHT WITHIN REACH.
--- NOTE | 2018-04-12 15:40 | NUR ---
PT MORE AWAKE AT THIS TIME AND TRYING TO GET UP OUT OF BED TO VOID. PT ALREADY HAD VOIDED IN HIS ATTENDS, A LARGE AMOUNT. ATTENDS CHANGED. PT ORIENTED TO SELF, BUT NOT YEAR, EVENT, OR MONTH. PT DOES STATE HE IS IN THE HOSPITAL. REMAINS ELEVATED, IN THE UPPER 20-LOWER 30s BUT DOES NOT APPEAR LABORED IN HIS BREATHING. WILL CONTINUE TO MONITOR CLOSELY.
[2018-04-12] MEDS ORDERED: MULTI VITAMIN1 EACH PO (18:18)
[2018-04-12] MEDS ORDERED: ISOSORBIDE MONO10 MG PO (18:21)
[2018-04-12] MEDS ORDERED: ZOFRAN ODT4 MG PO (18:24)
[2018-04-12] MEDS ORDERED: NITROFURANTOIN100 M1 PO (18:25)
[2018-04-12] MEDS ORDERED: DULCOLAX10 MG PR (18:28)
[2018-04-12] MEDS ORDERED: FLEET ENEMA133 ML PR (18:32)
[2018-04-12] MEDS ORDERED: MILK OF MA400 MG/5 M PO (18:33)
[2018-04-12] MEDS ORDERED: ALEVE220 MG PO (18:38)
[2018-04-12] MEDS ORDERED: LOPERAMIDE2 M1 PO (18:39)
--- NOTE | 2018-04-12 18:39 | NUR ---
DR. BROCK NOTIFIED OF PATIENT'S TEMP OF 100.6 AT 1700. NO FURTHER ORDERS REC'D AT THAT TIME. PT'S TEMP NOW 101.3. PT ASKED IF HE FEELS WARM AND HE DENIES FEELING WARM OR FEVERISH. PT VOIDS TO URINAL 225 ML AT THIS TIME. PT IS MORE ALERT, WATCHING TV.
[2018-04-12] MEDS ORDERED: BIOFREEZE118 ML TOP (18:40)
[2018-04-12] MEDS ORDERED: MUSCLE RUB CREA35 GM TOP (18:41)
--- NOTE | 2018-04-12 18:42 | NUR ---
MED REC COMPLETE
--- NOTE | 2018-04-12 19:20 | NUR ---
SHIFT REPORT RECEIVED FROM MAXIMILIANO MCINTOSH. PT IS CURRENTLY RESTING IN BED, NO APPARENT DISTRESS. IVF INFUSING WNL. RA.
--- NOTE | 2018-04-12 20:05 | NUR ---
TEMP: 100.2 TEMPORALLY. 5MG IV LOPRESSOR ADMINISTERED AT THIS TIME. PT DENIES PAIN AND NAUSEA. NO REQUESTS AT THIS TIME. WILL CONTINUE TO MONITOR.
--- NOTE | 2018-04-12 21:10 | NUR ---
ASSESSMENT COMPLETED. PT IS MORE ALERT, ORIENTED ONLY TO SELF, FLAT AFFECT. DENIES PAIN, DOES NOT APPEAR TO BE IN ANY DISTESS. LUNGS KILEY/DIM, TACHYPNIC, INSPIRATORY WHEEZE NOTED IN RIGHT UPPER LUNG, RA. HR REGULAR. BOWEL TONES HYPOACTIVE, DENIES NAUSEA, ABDOMEN SOFT AND NONTENDER. SKIN APPEARS GROSSLY INTACT. IV PATENT, SITE APPEAS WNL, IVF INFUSING WNL. PT INCONTINENT OF LARGE AMOUNT OF URINE. NEW ATTENDS AND CHUX PROVIDED, SKIN CARE DONE WITH BARRIER WIPES. PT REPOSITIONED ONTO RIGHT SIDE WITH PILLOW SUPPORT, BED ALARM ON FOR SAFETY. CB, NO INSULIN COVERAGE REQUIRED. NPO, MOUTH SWAB PROVIDED. PT DENIES FURTHER REQUESTS. WILL CONTINUE TO MONITOR.
--- NOTE | 2018-04-12 23:05 | NUR ---
PT INCONTINENT OF URINE, KRISHNA-CARE DONE WITH BARRIER WIPES, NEW ATTENDS IN PLACE. PT BOOSTED UP IN BED AND REPOSITIONED ONTO LEFT SIDE WITH PILLOW SUPPORT. NO FURTHER REQUESTS AT THIS TIME. BED ALARM REMAINS ON FOR SAFETY.
--- NOTE | 2018-04-13 00:13 | NUR ---
PT SLEEPING, NO APPARENT DISTRESS. RESPIRATIONS EVEN AND UNLABORED, RR:29, SPO2:93% ON RA. HR:76. IVF INFUSING WNL. WILL ALLOW FOR REST AND CONINUE TO MONITOR.
--- NOTE | 2018-04-13 01:10 | NUR ---
ASSESSMENT COMPLETED. LUNGS SOUND CLEAR/DIM THROUGHOUT, REMAINS ON ROOM AIR. NO OTHER CHANGES FROM PREVIOUS ASSESSMENT. PT WAS INCONTINENT OF VERY LARGE AMOUNT OF URINE. BED LINENS CHANGED, NEW CHUX, ATTENDS, GOWN, AND KRISHNA-CARE PROVIDED. PT REPOSITIONED ONTO RIGHT SIDE WITH PILLOW SUPPORT. PT MORE ALERT, GIVEN SIPS OF WATER, TOLERATED WELL, NO ISSUES SWALLOWING. BED ALARM REMAINS ON FOR SAFETY. WILL CONTINUE TO MONITOR.
--- NOTE | 2018-04-13 02:24 | NUR ---
PT'S CB WHICH CALLED FOR 1 UNIT SLIDING SCALE, HOWEVER SINCE PT IS NOT TAKING PO AT THIS TIME, DOSE WAS HELD PER CLINICAL JUDGEMENT. IV LOPRESSOR ADMINISTERED AT THIS TIME.
--- NOTE | 2018-04-13 03:33 | NUR ---
PT INCONTINENT OF URINE, NEW ATTENDS AND KRISHNA-CARE WITH BARRIER WIPES PROVIDED. PT REPOSITIONED WIH PILLOWS REMOVED AND IS CURRENTLY ON HIS BACK. PT GIVEN SIPS OF WATER WHICH HE SWALLOWS WITHOUT ISSUE. TEMP: 98.7 TEMPORALLY. BED ALARM REMAINS ON FOR SAFETY. NO FURTHER REQUESTS AT THIS TIME.
--- NOTE | 2018-04-13 04:58 | NUR ---
PT INCONTINENT OF URINE, NEW ATTENDS AND KRISHNA-CARE WITH BARRIER WIPES PROVIDED. ASSESSMENT COMPLETED, EXPIRATORY WHEEZES NOTED IN UPPER LUNG RODRIGUEZ, REMAINS TACYPNIC WITH RR:23-32. PT IS ALSO MORE ALERT AND ORIENTED TO SELF AND SURROUNDINGS. NO OTHER CHANGES FROM PREVIOUS ASSESSMENTS. PT DENIES FURTHER REQUESTS. BED ALARM REMAINS ON FOR SAFETY.
--- NOTE | 2018-04-13 06:50 | NUR ---
PT INCONTINENT OF URINE, NEW ATTENDS AND PERICARE POVIDED. BED ALARM REMAINS ON FOR SAFETY.
--- NOTE | 2018-04-13 07:30 | NUR ---
PT RESTING IN BED. PT SHIFT REPORT RECEIVED FROM DAY SHIFT RN. BED ALARM ON FOR PT SAFETY. WILL CONTINUE TO CLOSELY MONITOR.
--- NOTE | 2018-04-13 07:54 | NUR ---
PATIENT RESTING IN BED, CALL LIGHT IN REACH. PATIENT STATES HE DOES NOT WANT TO GET UP INTO THE CHAIR AT THIS TIME DUE TO BACK PAIN. PATIENT REQUESTS DRINKING WATER. RN NOTIFIED. NO OTHER NEEDS AT THIS TIME.
--- NOTE | 2018-04-13 08:21 | EKG ---
[facility] [address] [facility] [place] [address] Signed Normal sinus rhythm Possible Left atrial enlargement Borderline ECG When compared with ECG of 29-MAR-2018 11:38, No significant change was found Confirmed by FAHAD BROCK MD ([id number]) on 04/13/2018 8:21:06 AM Electronically Signed By: FAHAD BROCK MD 04/13/18 0821 PATIENT NAME: TANFIDE ERNA Electrocardiogram DATE OF : 60 PHYSICIAN: FAHAD BROCK MD REPORT #: [id number] REPORT IS CONFIDENTIAL AND NOT TO BE RELEASED WITHOUT AUTHORIZATION
--- NOTE | 2018-04-13 08:39 | NUR ---
THIS PI/SENIOR RESEARCH ASSOCIATE ASSISTED RN TO CHANGE PATIENT'S BRIEF. PERICARE PERFORMED. THIS PI/SENIOR RESEARCH ASSOCIATE AND RN ASSISTED PATIENT TO SIT ON THE EDGE OF THE BED, AND THEN STAND. PATIENT WAS UNABLE/UNWILLING TO MOVE HIS FEET TO TAKE STEPS AT THIS TIME. RN TRANSFERRED PATIENT WITH ONE PERSON PIVOT TO BEDSIDE RECLINER. PATIENT RESTING IN BEDSIDE RECLINER, CALL LIGHT IN REACH. LINENS CHANGED AND READJUSTED NEEDED. NO OTHER NEEDS AT THIS TIME.
--- NOTE | 2018-04-13 08:45 | NUR ---
ALL MORNING MEDICATIONS GIVEN WITH NO ISSUES. PT IS AWAKE, ALERT TO SELF, AND PLACE. PT HAS FLAT AFFECT, WITHDRAWN, AND SLOW TO RESPOND. PT FOLLOWS COMMANDS. PT ATTENDS CHANGED AND ASSISTED TO PT CHAIR. PT WAS ABLE TO PIVOT TURN TO TO CHAIR THIS AM. PT DENIES ANY OTHER NEEDS AT THIS TIME AND WILL CONTINUE TO CLOSELY MONITOR.
--- NOTE | 2018-04-13 10:20 | NUR ---
PATIENT HAD LARGE URINARY INCONTINENCE. THIS FLEXOGRAPHIC PRESS OPERATOR AND RN ASSISTED PATIENT TO STAND AND CHANGE ATTENDS. THIS FLEXOGRAPHIC PRESS OPERATOR PERFORMED PERICARE AND SKINCARE. PATIENT BACK IN BEDSIDE RECLINER, SITTING UP EATING BREAKFAST. PATIENT CALL LIGHT IN REACH. NO OTHER NEEDS AT THIS TIME .
--- NOTE | 2018-04-13 11:00 | NUR ---
PT MEDICATIONS ADMINISTERED. PT RESTING IN CHAIR. UPDATED ON PLAN OF CARE TO TRANSFER TO [facility]. PT IS AGREEABLE TO THIS PLAN. NO OTHER ISSUES AT THIS TIME. WILL CONTINUE TO CLOSELY MONITOR.
--- NOTE | 2018-04-13 12:00 | NUR ---
PT TRANSFERED TO ROOM 119. PT REPORT GIVEN TO JOEL VIERA. PT WHEELED OVER IN CHAIR WITH NO ISSUES. PT DENIES ANY NEEDS AT THIS TIME.MAXIMILIANO MALDONADO WILL RESUME CARE FOR THIS PATIENT.
--- NOTE | 2018-04-13 13:11 | NUR ---
SBA WITH RN JOEL PATIENT TO BATHROOM. PATIENT WILL CALL WHEN READY
--- NOTE | 2018-04-13 13:36 | NUR ---
UP TO BRP WITH 2 PERSON ASSIST, GAIT BELT AND FWW, VOIDED CLAER YELLOW URINE AND HAD LARGE BM. LOTION TO RED KRISHNA AREA APPLIED. COOPERATIVE, BACK TO BED. SLOW GAIT, SLURRED SPEECH STILL PRESENT, NO C/O APIN OR CP. MANU ON HAND SO PT CAN ORDER LUNCH. TOLERATING SIPS OF FLUIDS WELL. COOP WITH ASSESSMENT
--- NOTE | 2018-04-13 16:45 | NUR ---
THIS MEDICAL AIDE SHAVED PATIENTS FACE. CALL LIGHT IN REACH
--- NOTE | 2018-04-13 18:06 | NUR ---
Pt was transferred from CCU today, was up in chair for several hours, tolerated well. Showered with assist, back to bed, Gets up slowly with one assist, gait belt and FWW. Cooperative, on Regular diet,
--- NOTE | 2018-04-13 18:11 | NUR ---
THIS INDUSTRIAL ENG FOUND PATIENT LEANING FAR TO THE RIGHT IN BED AND HOLDING ON TO BED WITH LEFT HAND. PILLOW WAS USED TO PROP PATIENT UP. PATIENTS DINNER IS SITTING AT BEDSIDE, HE STATES HE'S NOT HUNGRY. VITALS AND I/OS CHARTED. CALL LIGHT IN REACH.
--- NOTE | 2018-04-13 19:25 | NUR ---
RECEIVED REPORT FROM JOEL PT IN BED, WATCHING TV. CALL LIGHT WITHI IN REACH.
--- NOTE | 2018-04-13 21:10 | NUR ---
NURSE FIRST AID IN TO DO VS, FOUND PT WITH INCONT STOOL @ 2156. PT ASSISTED UP TO THE BATHROOM, SBA PT AMBULATED TO BATHROOM, VERY SLOW, SL UNSTEADY WITH FFW. SPEECH SLURRED FROM PAST STROKES, ABLE TO MOVE WALKER WITH BOTH HANDS, FULL WEIGHT BEARING. PT IS AWARE OF WHERE HE IS AND THE DATE, NOT SURE WHY HE CAME TO HOSPITAL, BUT KNOWS HOW HE CAME. PT WAS UNAWARE HE HAD A BM, BUT DID STATE IT WAS EMBARASSING. NURSE FIRST AID ASSISTED PT BACK TO BED
--- NOTE | 2018-04-14 00:04 | NUR ---
PT WITH EYES CLOSED, RESP EVEN AND UNLABORED. IV INFUSING PER MD ORDER. SIDE RAILS UP
--- NOTE | 2018-04-14 02:44 | NUR ---
VITALS AND I&OS DONE AND CHARTED. CHANGED PTS ATTEND INCONTINENT OF URINE. BEDSIDE TABLE AND CALL LIGHT WITHIN REACH.
--- NOTE | 2018-04-14 02:45 | NUR ---
WOKE PT FOR VITALS, ACCOUNTS PAYABLE ADMINISTRATOR OFFERED TO GET PT UP TO TOILET, BUT PT WAS INCONT URINE, ATTENDS CHANGED. BS @ THIS TIME 145. PT ALERT, SPEECH SLURRED PER BASELINE, HAS BEEN SLEEPING THROUGHOUT SHIFT. HAS NO COMPLAINTS AT THIS TIME.
--- NOTE | 2018-04-14 04:14 | NUR ---
PT EYES CLOSED, RESP EVEN UNLABORED. IV INFUSING PER ORDER.
--- NOTE | 2018-04-14 06:05 | NUR ---
BALLPOINT PEN CARTRIDGE TESTER WOKE PT FOR VITALS, INCONT CHANGE. PT UNCHANGED FROM BEGINNING OF SHIFT. CONITNUES TO KNOW WHERE HE IS,
--- NOTE | 2018-04-14 06:43 | NUR ---
PT ABLE TO FOLLOW COMMANDS, SLURRED SPEECH, ALERT TO SURROUNDS, AND DATE. INCONT URINE, AND BOWEL. IV INFUSING PER ORDER, SATING IN THE 90'S ON RA. 1-2 PERSON TRANSFER DUE TO EQUIPMENT, PT AMBULATES EXTREMELY SLOW, NEEDS CUEING.
--- NOTE | 2018-04-14 07:00 | NUR ---
REPORT RECEIVED FROM CECILIA AT THIS TIME, PATIENT IS RESTING IN BED WITH HOB ELEVATED, RAILS UP X4
--- NOTE | 2018-04-14 08:30 | NUR ---
PATIENT AM MEDICATION GIVEN TO HIM AT THIS TIME, PATIENT MOVED UP IN BED AND BREAKFAST SET UP FOR HIM AT THIS TIME, HE HAS NO COMPLAINTS OF PAIN OR NEEDS, RAILS ALL REMAIN UP
--- NOTE | 2018-04-14 10:31 | NUR ---
PATIENT 2 PERSON ASSIST UP TO THE BATHROOM TO USE THE TOILET. HE WAS INCONTENENT OF URINE AND STOOL, PATIENT UP TO THE SHOWER LINEN CHANGED.
--- NOTE | 2018-04-14 10:49 | NUR ---
DOCTOR BROCK IN THE ROOM TO SEE HER
--- NOTE | 2018-04-14 15:06 | NUR ---
PATIENT RESTING ON THE RIGHT LATERAL SIDE. NO C/O PAIN OR NEEDS AT THIS TIME
--- NOTE | 2018-04-14 18:06 | NUR ---
PATIENT DINNER ORDERED, PM MEDICATION GIVEN AT THIS TIME
--- NOTE | 2018-04-14 19:49 | NUR ---
HELPED PT FROM THE CHAIR TO THE BED WITH HIS FWW. BED ALARM SET. CALL LIGHT AND BEDSIDE TABLE WITHIN REACH.
--- NOTE | 2018-04-14 21:29 | NUR ---
ASSESSMENT COMPLETED. PT DISORIENTED TO PLACE. SLURRED SPEACH. LUNGS CLEAR, HR IRREGULAR. BLOOD SUGAR WNL. REPORTS NO PAIN. CALL LIGHT IN REACH. BOWEL TONES ACTIVE. ATTENDS IN PLACE.
--- NOTE | 2018-04-14 23:00 | NUR ---
SBA W/ FWW TO BSC. PT TOLERATED WELL. INCONTINENT OF BOWEL AND URINE. ATTENDS CHANGED. BARRIOR CREAM APPLIED. BACK TO BED. FLUIDS INFUSING AT CORRECT RATE. PT REFUSED SCD'S. CALL LIGHT IN REACH. REPORTS NO OTHER NEEDS.
--- NOTE | 2018-04-15 01:43 | NUR ---
PT APPEARS TO BE SLEEPING. CALL LIGHT IN REACH. RESPIRAIOTNS WNL.
--- NOTE | 2018-04-15 03:36 | NUR ---
PT APPEARS TO BE SLEEPING. CALL LIGHT WITHIN REACH. RESPIRATIONS WNL.
--- NOTE | 2018-04-15 07:37 | NUR ---
ODERED HIS BREAKFAST ALSO DID HIS BLOOD SUGAR CHECK. PATIENT WENT BACK TO SLEEP.
--- NOTE | 2018-04-15 08:07 | NUR ---
REPORT RECIEVED FROM MAXIMILIANO PULIDO. PT AWAKE AND STATES HE HAD AN OK NIGHT. IV INFUSING WNL. WOULD LIKE NEW SHEETS THE NEXT TIME HE IS UP.
--- NOTE | 2018-04-15 10:21 | NUR ---
PT SITTING UP IN CHAIR. TOLERATING BLOOD WELL. DENIES SOB OR FLANK PAIN. VS STABLE.
--- NOTE | 2018-04-15 13:18 | NUR ---
PT APPEARS TO BE RESTING WITH EYES CLOSED. BLOOD HAS SMALL AMT LEFT IN BAG.
--- NOTE | 2018-04-15 14:01 | NUR ---
PT UP WALKING WITH PHYS. THER. BLOOD FINISHED. TOLERATED WELL WITH NO REPORTED SS OF REACTION. VS STABLE. PT STATES HE IS STILL TIRED AND DOES NOT WANT TO WALK VERY FAR.
--- NOTE | 2018-04-15 14:32 | NUR ---
DISCUSSED MEDICARE OUTPATIENT OBSERVATION NOTICE WITH PATIENT. PATIENT SIGNED. COPY GIVEN TO PATIENT. FORM PLACED TO CHART.
--- NOTE | 2018-04-15 14:34 | NUR ---
DISCUSSED WITH DIRECTOR PROCESS AT [facility] PATIENT RETURN TOMORROW OR DAY AFTER. SHE STATES THEY ARE ACCEPTING PATIENT BACK AT DISCHARGE. STAFF AND DR MUSA UPDATED. SNF PACK LEFT AT NURSES STATION WITH CHART FOR WEEKEND DISCHARGE.
--- NOTE | 2018-04-15 16:39 | NUR ---
SPOKE WITH PATIENT REGARDING DISCHARGE BACK TO [place] POSSIBLE TOMORROW OR SOON AFTER. HE STATES UNDERSTANDING.
--- NOTE | 2018-04-15 17:16 | NUR ---
PT UP TO RESTROOM WITH FWW AND 1 PA. UNABLE TO HOLD UNTIL RESTROOM. INCONTINENT IN DEPENDS.
--- NOTE | 2018-04-15 18:00 | NUR ---
STAND BY ASSIST PATIENT TO BR USING FWW. PATIENT WILL CALL WHEN READY
--- NOTE | 2018-04-15 18:23 | NUR ---
PT RECEIVED 2 UNITS PRBC. WALKED WITH PHSY. THER. DOESN'T TOLERATE DISTANCE WELL. UP TO RESTROOM WITH 1 PA AND FWW. MULTIPLE BOWEL MOVEMENTS. INCONTINENT SOMETIMES, USES DEPENDS. BS CHECKS DC'D. APPETITE REMAINS POOR. LOVES OJ. NS@75. PROBABLE DC TO [facility] TOMORROW.
--- NOTE | 2018-04-15 19:33 | NUR ---
GOT PATIENT UP A LOT TODAY TO TAKE HIM TO THE RESTROOM BECAUSE HE DIDN'T CALL A LOT. ALSO HE WAS SITTING IN HIS CHAIR FOR DINNER. NOW HIS IS BACK IN HIS BED WHEN I WENT BACK IN TO CHECK ON HIM.
--- NOTE | 2018-04-15 20:10 | NUR ---
REPORT RECEIVED FROM OFFGOING RN. PT RESTING IN BED WITH EYES CLOSED. DOES NOT WAKE WHEN SHARE HOLDER AND OFFGOING RN AT DOOR WAY. CALL LIGHT WITHIN PT REACH.
--- NOTE | 2018-04-15 21:31 | NUR ---
PT ASSESSMENT COMPLETE. PT DENIES PAIN, NAUSEA, SOB. PT WITH EXPIRATORY WHEEZES TO ALL LUNG RODRIGUEZ, DOES NOT CLEAR WITH COUGH. COUGH SOUNDS VERY LOOSE. PT DENIES PRODCUTION OF MUCOUS. BT'S ACTIVE, ABD NONDISTENDED. PT REPORTS ABD TENDER TO TOUCH. PT ATTEMPTS TO USE URINAL, UNSUCCESSFUL. CHUX, ATTENDS, AND PT GOWN CHANGED. PT DENIES OTHER NEEDS AT THIS TIME. CALL LIGHT WITHIN REACH.
--- NOTE | 2018-04-15 22:04 | NUR ---
CHARGE NURSE ROUNDING NOTE: PT TRANSFERRED FROM CHAIR TO BED, ONE ASSIST, GAIT BELT, FWW. TOLERATED WELL. CONTINUES TO HAVE SLURRED SPEECH AND R SIDED DEFICIT, TOLERATES FLUIDS WELL, CALL LIGHT AND FLUIDS WITHING HANDS REACH. HELPS WITH RTEPOSITIONING IN BED, NO C/O PAIN , N/V NO REQUESTS
--- NOTE | 2018-04-15 23:40 | NUR ---
PT RESTING IN BED WITH EYES CLOSED. RESPIRATIONS EVEN AND UNLABORED. PT APPEARS TO BE SLEEPING. CALL LIGHT WITHIN REACH.
--- NOTE | 2018-04-16 01:30 | NUR ---
PT RESTING IN BED WITH EYES CLOSED. RESPIRATIONS EVEN AND UNLABORED. PT DOES NOT WAKE WHILE INSTRUMENT SETTER IN DOORWAY, PT APPERAS TO BE SLEEPING. CALL LIGHT WITHIN REACH.
--- NOTE | 2018-04-16 04:05 | NUR ---
PT RESTING IN BED WITH EYES CLOSED, WAKES EASILY TO NAME. PT ASSESSMENT COMPLETE. PT DENIES PAIN, NAUSEA, SOB. LUNGS SOUND CLEAR AT THIS TIME, NO COUGH NOTED DURING ASSESSMENT. PT FOUND TO BE WET. ATTENDS AND CHUX CHANGED. PT DENIES OTHER NEEDS AT THIS TIME. CALL LIGHT WITHIN REACH.
--- NOTE | 2018-04-16 05:10 | NUR ---
PT SLEPT MAJORITY OF SHIFT. NO PAIN, NAUSEA, OR SOB. SPEECH GARBLED, FLAT AFFECT. R SIDED WEAKNESS. OCCASIONAL, LOOSE, NONPRODUCTIVE COUGH. PT INCONTINENET OF BOWEL AND BLADDER, ATTENDS IN PLACE. IV SL. 1PA WITH FWW.
--- NOTE | 2018-04-16 06:17 | NUR ---
MD CALLED, NOTIFIED OF ELEVATED BP READING. PT'S AM BLOOD PRESSURE MEDICATION TO BE GIVEN EARLY, NEW ORDER RECEIVED, TORB.
--- NOTE | 2018-04-16 07:46 | NUR ---
patient report received from Hazel VIERA, patient is resting on the left side, wakes easily to his name. he is alert and oreitned at this time. He has voided in the urinal at bedside clear yellow urine 150mls. patient am medication given
--- NOTE | 2018-04-16 10:35 | NUR ---
PATIENT SLEEPING WITH EYES CLOSED AT THIS TIME
--- NOTE | 2018-04-16 10:58 | NUR ---
DOCTOR MUSA IN TO SEE THE PATIENT AT THIS TIME.
[2018-04-16] MEDS ORDERED: CEPHALEXIN500 MG PO (11:01)
[2018-04-16] MEDS ORDERED: PLAVIX75 MG PO (11:02)
[2018-04-16] MEDS ORDERED: MAPAP500 M1 PO (11:02)
--- NOTE | 2018-04-16 11:29 | NUR ---
DISCHARGE DONE AND SENT TO [facility] FOR ADMIT,
--- NOTE | 2018-04-16 11:30 | NUR ---
BEFORE PATIENT WAS DISCHARGED I GAVE HIM A SHOWER AND WASHED HIS HAIR. ALSO TOOK OUT HIS IV.
--- NOTE | 2018-04-16 11:58 | NUR ---
PATIENT TAKEN TO [facility] AT THIS TIME.
--- NOTE | 2018-04-16 12:24 | NUR ---
REPORT GIVEN TO PAVAN AT [facility] ON THIS PATIENT AT THIS TIME
== END 2018-04-16 11:55 | DRG 871 ==
LOC: ED 08:43 → CCU 12:46 → MS 12:46
PROVIDERS: ADMIT Internal Medicine
DX: A41.59 Other Gram-negative sepsis (principal); G93.41 Metabolic encephalopathy; N30.00 Acute cystitis without hematuria; N17.9 Acute kidney failure, unspecified; K92.2 Gastrointestinal hemorrhage, unspecified; I25.10 Atherosclerotic heart disease of native coronary artery without angina pectoris; I69.322 Dysarthria following cerebral infarction; I25.2 Old myocardial infarction; E11.42 Type 2 diabetes mellitus with diabetic polyneuropathy; F32.9 Major depressive disorder, single episode, unspecified; D50.0 Iron deficiency anemia secondary to blood loss (chronic); D12.0 Benign neoplasm of cecum; Z95.5 Presence of coronary angioplasty implant and graft; Z95.1 Presence of aortocoronary bypass graft; Z87.891 Personal history of nicotine dependence; Z87.19 Personal history of other diseases of the digestive system; Z66 Do not resuscitate; Z79.84 Long term (current) use of 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; Z79.899 Other long term (current) drug therapy
CPT/HCPCS: 36415; 70450; 71046; 80048; 80053; 81001; 82728; 83605; 83735; 85018; 85025; 86850; 86900; 86901; 86920; 87088; 93005; 93010; 97110; 97162; J0696; J1650; J1815; J3475; J7030; J7040; P9016

== ENCOUNTER 2018-05-03 06:18 | Emergency (ER) | payer MEDICARE, OTHER ==
[~2018-05-03] VITALS: Ht 172.7 cm; Wt 69.5 kg
[~2018-05-03 06:18] MED LIST changes: +ALEVE220 MG PO; +BIOFREEZE118 ML TOP; +CEFPODOXIME PR200 MG PO; +CEPHALEXIN500 MG PO; +DULCOLAX10 MG PR; +FLEET ENEMA133 ML PR; +ISOSORBIDE MONO10 MG PO; +LISINOPRIL20 MG PO; +LOPERAMIDE2 M1 PO; +MAPAP500 M1 PO; +MILK OF MA400 MG/5 M PO; +MULTI VITAMIN1 EACH PO; +MUSCLE RUB CREA35 GM TOP; +NITROFURANTOIN100 M1 PO; +PREDNISONE10 MG PO; +PROBIOTIC1 EAC1 PO; +ZOFRAN ODT4 MG PO
--- NOTE | 2018-05-03 15:28 | EKG ---
[facility] [address] [place] [address] Signed Poor data quality, interpretation may be adversely affected Sinus bradycardia with occasional premature ventricular complexes Possible Left atrial enlargement Septal infarct , age undetermined Abnormal ECG When compared with ECG of 29-APR-2018 19:50, premature ventricular complexes are now present Vent. rate has decreased BY 32 BPM Septal infarct is now present Nonspecific T wave abnormality has replaced inverted T waves in Lateral leads Confirmed by HELADIO MUSA MD ([id number] on 05/03/2018 3:28:40 PM Electronically Signed By: HELADIO MUSA MD 05/03/18 1528 PATIENT NAME: FIDE MADDOX Electrocardiogram DATE OF : 60 PHYSICIAN: HELADIO MUSA MD REPORT #: [id number] REPORT IS CONFIDENTIAL AND NOT TO BE RELEASED WITHOUT AUTHORIZATION
== END 2018-05-03 09:00 | disposition home or self-care (01) ==
LOC: ED 06:18
DX: I10 Essential (primary) hypertension (principal); I25.2 Old myocardial infarction; E11.40 Type 2 diabetes mellitus with diabetic neuropathy, unspecified; F32.9 Major depressive disorder, single episode, unspecified; D64.9 Anemia, unspecified; F17.200 Nicotine dependence, unspecified, uncomplicated; Z79.899 Other long term (current) drug therapy; Z79.84 Long term (current) use of 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
CPT/HCPCS: 93005; 93010; 99283

== ENCOUNTER 2018-06-08 12:56 | Emergency (ER) | payer MEDICARE, OTHER ==
[~2018-06-08] VITALS: Ht 172.7 cm; Wt 69.8 kg
[2018-06-08] MEDS ORDERED: BACTRIM DS TAB1 EACH PO (15:32)
--- NOTE | 2018-06-08 16:38 | EKG ---
[facility] [address] [facility] [place] [address] Signed Sinus bradycardia Otherwise normal ECG , peaked t waves consider hyperkalemia When compared with ECG of 03-MAY-2018 06:20, premature ventricular complexes are no longer present Criteria for Septal infarct are no longer present Confirmed by FAHAD BROCK MD ([id number]) on 06/08/2018 4:38:02 PM Electronically Signed By: FAHAD BROCK MD 06/08/18 1638 PATIENT NAME: TANFIDE ERNA Electrocardiogram DATE OF : 60 PHYSICIAN: FAHAD BROCK MD REPORT #: [id number] REPORT IS CONFIDENTIAL AND NOT TO BE RELEASED WITHOUT AUTHORIZATION
== END 2018-06-08 17:18 | disposition short-term general hospital (02) ==
LOC: ED 12:56
DX: D64.9 Anemia, unspecified (principal); E87.5 Hyperkalemia; N17.9 Acute kidney failure, unspecified; R55 Syncope and collapse; I25.2 Old myocardial infarction; Z86.73 Personal history of transient ischemic attack (TIA), and cerebral infarction without residual deficits; E11.40 Type 2 diabetes mellitus with diabetic neuropathy, unspecified; F17.200 Nicotine dependence, unspecified, uncomplicated; Z79.899 Other long term (current) drug therapy
CPT/HCPCS: 36415; 36430; 71045; 80053; 81001; 84484; 85025; 86850; 86900; 86901; 86920; 93005; 93010; 96361; 96374; 96375; 99285; J7030

== ENCOUNTER 2018-07-11 20:07 | Emergency (ER) | payer MEDICARE, OTHER ==
[~2018-07-11] VITALS: Ht 172.7 cm; Wt 69.8 kg
[~2018-07-11 20:07] MED LIST changes: +BACTRIM DS TAB1 EACH PO
--- OUTSIDE RECORDS SUMMARY | 2018-07-11 20:12 | XMS ---
PreManage Notification: FIDE MADDOX Security Media Consultant Outside Sales Events No recent Security Events currently on file CRITERIA MET - Group Notification - 6 ED Visits in 6 Mon[address] [facility] - 2 Visits in 30 Days CARE PROVIDERS HELADIO MUSA Internal Medicine 06/08/2018-Current [facility] [facility] PHONE: [phone] DR HELADIO MUSA Primary Care Current PHONE: [phone] Serge has no Care Guidelines for this patient. Care History Medical/Surgical 06/08/2018 [facility] - Patient is currently established with [facility]. If patient is seen in the ED during business hours. Please contact CHWs at [facility]. Care Recommendation: This patient has had 5 or more Emergency Department visits in the last 12 months.\T\nbsp; Patient requires education on the scope and purpose of the ED as an acute care provider not a Primary Care Provider and should not be utilized for chronic conditions.\T\nbsp; These are guidelines and the provider should exercise clinical judgment when providing care. E.D. VISIT COUNT (12 MO.) [address] [facility] 10 [facility] TOTAL 12 NOTE: Visits indicate total known visits. ED/UCC VISIT TRACKING (12 MO.) 07/11/2018 20:07 [facility] TYPE: Emergency COMPLAINT: - HYPOTENSION 06/28/2018 13:59 [facility] TYPE: Emergency DIAGNOSES: - Acute kidney failure, unspecified - Hyperkalemia - Unspecified abdominal pain - Chest pain, unspecified - Pneumonitis due to inhalation of food and vomit 06/28/2018 08:02 [facility] TYPE: Emergency COMPLAINT: - VOMITING DIAGNOSES: - Vomiting, unspecified - Hyperkalemia - Pneumonitis due to inhalation of food and vomit - Other usp (current) drug therapy - Nicotine dependence, unspecified, uncomplicated 06/08/2018 18:49 [facility] TYPE: Emergency DIAGNOSES: - Illness, unspecified - Dehydration 06/08/2018 12:56 [facility] TYPE: Emergency COMPLAINT: - CONFUSION DIAGNOSES: - Other usp (current) drug therapy - Hyperkalemia - Old myocardial infarction - Anemia, unspecified - Personal history of transient ischemic attack (TIA), and cerebral infarction without residual deficits - Type 2 diabetes mellitus with diabetic neuropathy, unspecified - Syncope and collapse - Nicotine dependence, unspecified, uncomplicated - Acute kidney failure, unspecified 05/03/2018 06:18 [facility] TYPE: Emergency COMPLAINT: - WEAKNESS DIAGNOSES: - Old myocardial infarction - terminal operations manager (current) use of 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 - Weakness - LONG-TERM (CURRENT) USE OF ORAL HYPOGLYCEMIC DRUGS - Major depressive disorder, single episode, unspecified - Nicotine dependence, unspecified, uncomplicated - Essential (primary) hypertension - Anemia, unspecified - Type 2 diabetes mellitus with diabetic neuropathy, unspecified - Other intermediate school teacher (current) drug therapy 04/29/2018 19:37 [facility] TYPE: Emergency COMPLAINT: - HYPERTENSION 04/12/2018 08:44 [facility] TYPE: Emergency COMPLAINT: - WEAKNESS 04/03/2018 14:10 [facility] TYPE: Emergency COMPLAINT: - ABD PAIN DIAGNOSES: - Personal history of nicotine dependence - half-way (current) use of anticoagulants - Other usp (current) drug therapy - Type 2 diabetes mellitus with diabetic neuropathy, unspecified - Constipation, unspecified - half-way (current) use of 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 - Upper abdominal pain, unspecified - Major depressive disorder, single episode, unspecified - Chronic obstructive pulmonary disease, unspecified - Personal history of transient ischemic attack (TIA), and cerebral infarction without residual deficits - Old myocardial infarction - Anemia, unspecified - LONG-TERM (CURRENT) USE OF ORAL HYPOGLYCEMIC DRUGS 02/08/2018 13:12 [facility] TYPE: Emergency COMPLAINT: - WEAKNESS 02/05/2018 10:15 [facility] TYPE: Emergency COMPLAINT: - POSS STROKE 10/30/2017 17:29 [facility] TYPE: Emergency COMPLAINT: - WEAKNESS INPATIENT VISIT TRACKING (12 MO.) 06/28/2018 13:59 [facility]: [facility] DIAGNOSES: - Acute kidney failure, unspecified - Unspecified abdominal pain - Chest pain, unspecified - Hyperkalemia - Pneumonitis due to inhalation of food and vomit 06/08/2018 18:49 [facility] TYPE: General Medicine DIAGNOSES: - Unspecified severe protein-calorie malnutrition - Syncope and collapse - Acute kidney failure, unspecified - Personal history of transient ischemic attack (TIA), and cerebral infarction without residual deficits - Illness, unspecified - Disease of intestine, unspecified - Dehydration - Hyperlipidemia, unspecified 05/30/2018 12:30 [facility]: Recovery DIAGNOSES: - Disease of intestine, unspecified [email or web address]
[2018-07-11] MEDS ORDERED: HYDRALAZINE HCL50 MG PO (21:09)
[2018-07-11] MEDS ORDERED: LOPERAMIDE2 MG PO (21:10)
[2018-07-11] MEDS ORDERED: MELATIN3 MG PO (21:10)
[2018-07-11] MEDS ORDERED: METAMUCIL660 GM PO (21:11)
[2018-07-11] MEDS ORDERED: ROXICODONE15 MG PO (21:11)
--- NOTE | 2018-07-12 06:52 | EKG ---
[facility] [address] [place] [address] Signed Sinus bradycardia Left axis deviation Septal infarct , age undetermined Abnormal ECG When compared with ECG of 28-JUN-2018 08:10, Vent. rate has decreased BY 34 BPM QRS duration has decreased Septal infarct is now present Criteria for Inferior infarct are no longer present Nonspecific T wave abnormality, worse in Lateral leads Confirmed by FAHAD BROCK MD ([id number]) on 07/12/2018 6:52:07 AM Electronically Signed By: FAHAD BROCK MD 07/12/18 0652 PATIENT NAME: FIDE MADDOX Electrocardiogram DATE OF : 60 PHYSICIAN: FAHAD BROCK MD REPORT #: [id number] REPORT IS CONFIDENTIAL AND NOT TO BE RELEASED WITHOUT AUTHORIZATION
== END 2018-07-11 23:42 | disposition short-term general hospital (02) ==
LOC: ED 20:07
DX: N17.9 Acute kidney failure, unspecified (principal); E87.5 Hyperkalemia; I25.2 Old myocardial infarction; E11.40 Type 2 diabetes mellitus with diabetic neuropathy, unspecified; F32.9 Major depressive disorder, single episode, unspecified; D64.9 Anemia, unspecified; F17.200 Nicotine dependence, unspecified, uncomplicated; Z88.0 Allergy status to penicillin; Z79.899 Other long term (current) drug therapy; Z79.84 Long term (current) use of 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
CPT/HCPCS: 71045; 80053; 85025; 93005; 93010; 94640; 96374; 96375; 99285; J0610; J1815; J2405; J7030

== ENCOUNTER 2018-10-24 20:26 | Emergency (ER) | payer MEDICARE, OTHER ==
[~2018-10-24] VITALS: Ht 172.7 cm; Wt 63.0 kg
[~2018-10-24 20:26] MED LIST changes: +BIOFREEZE118 ML; +CLOTRIMAZOLE10 MG MM; +FERROUS SULFAT325 MG PO; +HYDRALAZINE HCL50 MG PO; +LIDOCAINE HCL100 ML MT; +LOPERAMIDE2 MG PO; +MELATIN3 MG PO; +METAMUCIL660 GM PO; +ROXICODONE15 MG PO; +TENORMIN50 MG PO
--- OUTSIDE RECORDS SUMMARY | 2018-10-24 20:32 | XMS ---
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 Care History Medical/Surgical 06/08/2018 [facility] - Patient is currently established with [facility]. If patient is seen in the ED during business hours. Please contact CHWs at [facility]. Care Recommendation: This patient has had [...] providing care. E.D. VISIT COUNT (12 MO.) [address] [place] [address] ANN Stewart TOTAL 16 NOTE: Visits indicate total known visits. ED/UCC VISIT TRACKING (12 MO.) 10/24/2018 20:27 [facility] [place] TYPE: Emergency COMPLAINT: - COLOSTOMY BAG ISSUES 09/02/2018 14:55 [facility] [place] TYPE: Emergency COMPLAINT: - BLOOD IN STOOL DIAGNOSES: - Other group home (current) drug therapy - Type 2 diabetes mellitus with diabetic neuropathy, unspecified - Allergy status to penicillin - Old myocardial infarction - Gastrointestinal hemorrhage, unspecified - Melena 08/22/2018 18:54 [facility] [place] TYPE: Emergency COMPLAINT: - RECTAL BLEEDING DIAGNOSES: - Melena - Major depressive disorder, single episode, unspecified - Old myocardial infarction - Anemia, unspecified - Allergy status to penicillin - Hemorrhage of anus and rectum - Personal history of nicotine dependence - Type 2 diabetes mellitus with diabetic neuropathy, unspecified - Other group home (current) drug therapy 07/12/2018 01:01 [facility] TYPE: Emergency DIAGNOSES: - Pain, unspecified - Acute kidney failure, unspecified - Dehydration - Hyperkalemia 07/11/2018 20:07 ANN [facility] TYPE: Emergency COMPLAINT: - HYPOTENSION DIAGNOSES: - Acute kidney failure, unspecified - 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 - Hyperkalemia - Nicotine dependence, unspecified, uncomplicated - Other group home (current) drug therapy - Old myocardial infarction - Anemia, unspecified - Allergy status to penicillin - Type 2 diabetes mellitus with diabetic neuropathy, unspecified - Major depressive disorder, single episode, unspecified 06/28/2018 13:59 [facility] TYPE: Emergency DIAGNOSES: - Acute kidney failure, unspecified - Hyperkalemia - Unspecified abdominal pain - Chest pain, unspecified - Pneumonitis due to inhalation of food and vomit 06/28/2018 08:02 ANN [facility] TYPE: Emergency COMPLAINT: - VOMITING DIAGNOSES: - Vomiting, unspecified - Hyperkalemia - Pneumonitis due to inhalation of food and vomit - Other terminal operations supervisor (current) drug therapy - Nicotine dependence, unspecified, uncomplicated 06/08/2018 18:49 [facility] TYPE: Emergency DIAGNOSES: - Illness, unspecified - Dehydration 06/08/2018 12:56 [facility] [place] TYPE: Emergency COMPLAINT: - CONFUSION DIAGNOSES: - Other group home (current) drug therapy - Hyperkalemia - Old [...] WEAKNESS DIAGNOSES: - Old myocardial infarction - custodial (current) use of 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 - Weakness - CUSTODIAL (CURRENT) USE OF ORAL HYPOGLYCEMIC DRUGS - Major depressive disorder, single episode, unspecified - Nicotine dependence, unspecified, uncomplicated - Essential (primary) hypertension - Anemia, unspecified - Type 2 diabetes mellitus with diabetic neuropathy, unspecified - Other terminal operations supervisor (current) drug therapy 04/29/2018 19:37 [facility] [place] TYPE: Emergency COMPLAINT: - HYPERTENSION 04/12/2018 08:44 [facility] [place] TYPE: Emergency COMPLAINT: - WEAKNESS 04/03/2018 14:10 [facility] [place] TYPE: Emergency COMPLAINT: - ABD PAIN DIAGNOSES: - Personal history of nicotine dependence - custodial (current) use of anticoagulants - Other group home (current) drug therapy - Type 2 diabetes mellitus with diabetic neuropathy, unspecified - Constipation, unspecified - 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 TYPE: Emergency COMPLAINT: - WEAKNESS INPATIENT VISIT TRACKING (12 MO.) 09/02/2018 22:18 [facility] Edmund [facility] TYPE: Recovery DIAGNOSES: - GIB 07/12/2018 01:01 [facility] TYPE: General Medicine DIAGNOSES: - Elevated white blood cell count, unspecified - Acute kidney failure, unspecified - Hyperkalemia - Acidosis - Pneumonitis due to inhalation of food and vomit - Dehydration - Pain, unspecified 06[facility]28/2018 [facility] DIAGNOSES: - Acute kidney failure, unspecified - Unspecified abdominal pain - Chest pain, unspecified - Hyperkalemia - Pneumonitis due to inhalation of food and vomit [facility]08/2018 [facility] TYPE: General Medicine DIAGNOSES: - Unspecified severe protein-calorie malnutrition - Syncope and collapse - Acute kidney failure, unspecified - Personal history of transient ischemic attack (TIA), and cerebral infarction without residual deficits - Illness, unspecified - Disease of intestine, unspecified - Dehydration - Hyperlipidemia, unspecified 05/30/2018 12:30 [facility] TYPE: Recovery DIAGNOSES: - Disease of intestine, unspecified 04/29/2018 19:38 [facility] [place] TYPE: Medical Surgical COMPLAINT: - URINARY TRACT INFECTION DIAGNOSES: - Abdominal aortic aneurysm, without rupture - Benign neoplasm of cecum - 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 - Type 2 diabetes mellitus with diabetic polyneuropathy - Occlusion and stenosis of bilateral carotid arteries - Occlusion and stenosis of right anterior cerebral artery - Gout, unspecified - Personal history of nicotine dependence - Dysarthria following unspecified cerebrovascular disease - Occlusion and stenosis of other precerebral arteries - Hyperlipidemia, unspecified - Atherosclerotic heart disease of [place] coronary artery without angina pectoris - Other group home (current) drug therapy - Occlusion and stenosis of basilar artery - Essential (primary) hypertension - Acute cystitis without hematuria - Gastro-esophageal reflux disease without esophagitis - custodial (current) use of antithrombotics/antiplatelets - Presence of aortocoronary bypass graft - Urinary tract infection, site not specified - Major depressive disorder, single episode, unspecified - Old myocardial infarction - Occlusion and stenosis of left vertebral artery - 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 - Benign neoplasm of cecum - Acute kidney failure, unspecified - Atherosclerotic heart disease of [place] coronary artery without angina pectoris - Other group home (current) drug therapy - Other Gram-negative sepsis - Personal history of other diseases of the digestive system - Major depressive disorder, single episode, unspecified - Dysarthria following cerebral infarction - Iron deficiency anemia secondary to blood loss (chronic) - Presence of coronary angioplasty implant and graft - Old myocardial infarction - Do not resuscitate - Acute cystitis without hematuria - Personal history of nicotine dependence - Type 2 diabetes mellitus with diabetic polyneuropathy - Metabolic encephalopathy - Sepsis, unspecified organism - Gastrointestinal hemorrhage, unspecified 02/08/2018 17:27 [facility] [place] TYPE: Medical Surgical COMPLAINT: - STROKE DIAGNOSES: - Atherosclerotic heart disease of [place] coronary artery without angina pectoris - Cerebral infarction, unspecified - Personal history of other diseases of the digestive system - Occlusion and stenosis of left middle cerebral artery - Presence of coronary angioplasty implant and graft - Presence of aortocoronary bypass graft - Occlusion and stenosis of right anterior cerebral artery - Dysarthria and anarthria - Other group home (current) drug therapy - Occlusion and stenosis of basilar artery - Hyperlipidemia, unspecified - Nicotine dependence, cigarettes, uncomplicated - Type 2 diabetes mellitus with diabetic polyneuropathy - Hemiplegia, unspecified affecting right dominant side - Cerebral infarction due to unspecified occlusion or stenosis of right middle cerebral artery - custodial (current) use of aspirin - Unspecified mood [affective] disorder - NIHSS score 9 - Occlusion and stenosis of bilateral carotid arteries - Benign neoplasm of cecum - 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 - Do not resuscitate - Occlusion and stenosis of left vertebral artery 02/05/2018 11:58 [facility] [place] TYPE: Medical Surgical COMPLAINT: - ANEMIA/ STROKE SYMPTOMS DIAGNOSES: - Mixed receptive-expressive language disorder - custodial (current) use of aspirin - Presence of coronary angioplasty implant and graft - Unsteadiness on feet - Type 2 diabetes mellitus with diabetic peripheral angiopathy without gangrene - Iron deficiency anemia secondary to blood loss (chronic) - Atherosclerotic heart disease of [place] coronary artery without angina pectoris - Hyperlipidemia, unspecified - Do not resuscitate - custodial (current) use of 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 - Adverse effect of other nonsteroidal anti-inflammatory drugs [NSAID], initial encounter - Other terminal operations supervisor (current) drug therapy - Type 2 diabetes mellitus with diabetic polyneuropathy - Presence of aortocoronary bypass graft - Dysarthria and anarthria - Essential (primary) hypertension - Old myocardial infarction - Other hemorrhoids - Other specified diseases of intestine - Iron deficiency anemia, unspecified - Gastritis, unspecified, with bleeding - Transient cerebral ischemic attack, unspecified - Personal history of transient ischemic attack (TIA), and cerebral infarction without residual deficits - Polyp of colon - Nicotine dependence, cigarettes, uncomplicated 10/30/2017 17:[address] [facility] [place] TYPE: Critical Care COMPLAINT: - TIA DIAGNOSES: - Major depressive disorder, single episode, unspecified - Do not resuscitate - Dysarthria following cerebral infarction - Essential (primary) hypertension - Atherosclerotic heart disease of [place] coronary artery without angina pectoris - custodial (current) use of 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 - Type 2 diabetes mellitus with diabetic peripheral angiopathy without gangrene - Old myocardial infarction - Hyperlipidemia, unspecified - Presence of coronary angioplasty implant and graft - Nicotine dependence, unspecified, uncomplicated - Iron deficiency anemia, unspecified - Presence of aortocoronary bypass graft - Type 2 diabetes mellitus with diabetic neuropathy, unspecified - 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 of aspirin - Facial weakness following cerebral infarction - Other group home (current) drug therapy - Transient cerebral ischemic attack, unspecified [email or web address]
[2018-10-24] MEDS ORDERED: GLUCAGEN1 MG/1 ML IM (20:41)
== END 2018-10-24 22:55 | disposition home or self-care (01) ==
LOC: ED 20:26
DX: Z43.3 Encounter for attention to colostomy (principal); I25.2 Old myocardial infarction; E11.40 Type 2 diabetes mellitus with diabetic neuropathy, unspecified; F32.9 Major depressive disorder, single episode, unspecified; D64.9 Anemia, unspecified; Z87.891 Personal history of nicotine dependence; Z88.0 Allergy status to penicillin; Z79.899 Other long term (current) drug therapy; Z79.84 Long term (current) use of 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
CPT/HCPCS: 99283

== ENCOUNTER 2019-06-26 14:48 | Emergency (ER) | payer MEDICARE, OTHER ==
[~2019-06-26] VITALS: Ht 172.7 cm; Wt 79.8 kg
[~2019-06-26 14:48] MED LIST changes: +BISACODYL10 MG PR; +CALCIUM POLYCA625 MG PO; +FLUOXETINE HCL10 M1 PO; -FLUOXETINE HCL40 MG PO; +FORTAMET500 MG PO; +GLIPIZIDE10 MG; +GLUCAGEN1 MG/1 ML IM; +LIPITOR20 MG PO; +MIRALAX17 GM PO; +OXYCODONE HCL5 MG PO
--- OUTSIDE RECORDS SUMMARY | 2019-06-26 14:52 | XMS ---
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 Care History Medical/Surgical 06/08/2018 [facility] - Patient is currently established with [facility]. If patient is seen in the ED during business hours. Please contact CHWs at [facility]. Care Recommendation: This patient has had [...] care. E.D. VISIT COUNT (12 MO.) [address] TOTAL 8 NOTE: Visits indicate total known visits. 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 - Anemia, unspecified - Type 2 diabetes mellitus with diabetic neuropathy, unspecified - Other detention (current) drug therapy - Personal history of nicotine dependence 09/02/2018 14:55 [facility] [place] TYPE: Emergency COMPLAINT: - BLOOD IN STOOL DIAGNOSES: - Other detention (current) drug therapy - Type 2 diabetes [...] mellitus with diabetic neuropathy, unspecified - Other detention (current) drug therapy 07/12/2018 01:01 [facility] TYPE: Emergency DIAGNOSES: - Pain, unspecified - Acute kidney failure, unspecified - Dehydration - Hyperkalemia 07/11/2018 20:07 ANN [facility]ling TYPE: Emergency COMPLAINT: - HYPOTENSION DIAGNOSES: - Acute kidney failure, unspecified - care home (current) use of 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 - Hyperkalemia - Nicotine dependence, unspecified, uncomplicated - Other terminal press operator (current) drug therapy - Old myocardial infarction - Anemia, unspecified - Allergy status to penicillin - Type 2 diabetes mellitus with diabetic neuropathy, unspecified - Major depressive disorder, single episode, unspecified 06/28/2018 13:59 [facility] TYPE: Emergency DIAGNOSES: - Acute kidney failure, unspecified - Hyperkalemia - Unspecified abdominal pain - Chest pain, unspecified - Pneumonitis due to inhalation of food and vomit 06/28/2018 08:02 ANN [facility]ling TYPE: Emergency COMPLAINT: - VOMITING DIAGNOSES: - Vomiting, unspecified - Hyperkalemia - Pneumonitis due to inhalation of food and vomit - Other terminal press operator (current) drug therapy - Nicotine dependence, unspecified, uncomplicated INPATIENT VISIT TRACKING (12 MO.) 11/28/2018 07[facility]10 [facility] TYPE: Recovery DIAGNOSES: - Encounter for attention to ileostomy - ileocolostomy - Disease of intestine, unspecified 09/02/2018 22:18 [facility] TYPE: Recovery DIAGNOSES: - GIB 07/12/2018 01:01 [facility] TYPE: General Medicine DIAGNOSES: - Elevated white blood cell count, unspecified - Acute kidney failure, unspecified - Hyperkalemia - Acidosis - Pneumonitis due to inhalation of food and vomit - Dehydration - Pain, unspecified 06/28/2018 13:59 [facility] TYPE: Recovery DIAGNOSES: - Acute kidney failure, unspecified - Unspecified abdominal pain - Chest pain, unspecified - Hyperkalemia - Pneumonitis due to inhalation of food and vomit [email or web address]
== END 2019-06-26 16:24 | disposition home or self-care (01) ==
LOC: ED 14:48
DX: S20.211A Contusion of right front wall of thorax, initial encounter (principal); I25.2 Old myocardial infarction; E11.40 Type 2 diabetes mellitus with diabetic neuropathy, unspecified; F32.9 Major depressive disorder, single episode, unspecified; Z86.73 Personal history of transient ischemic attack (TIA), and cerebral infarction without residual deficits; Z95.5 Presence of coronary angioplasty implant and graft; Z90.49 Acquired absence of other specified parts of digestive tract; Z88.0 Allergy status to penicillin; Z79.84 Long term (current) use of 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; Z79.899 Other long term (current) drug therapy; W06.XXXA Fall from bed, initial encounter
CPT/HCPCS: 71046; 99284-25

== ENCOUNTER 2019-12-13 07:50 | Day surgery (SDC) | payer MEDICARE, OTHER ==
[~2019-12-13] VITALS: Ht 172.7 cm; Wt 84.4 kg
[~2019-12-13 07:50] MED LIST changes: +COZAAR50 MG PO; +CULTURELLE PRO PO; +FLUOXETINE HCL10 MG PO; +METOPROLOL SUC100 MG PO; -NEURONTIN300 MG PO; +VITAMIN C250 MG PO
--- NOTE | 2019-12-13 10:08 | NUR ---
12/13/19 [address],[place] 1002 PT ARRIVED TO PACU ON 10L VIA MASK, RESP EVEN AND UNLABORED WITH ORAL AIRWAY IN PLACE. VSS.
--- NOTE | 2019-12-14 06:29 | OR ---
[facility] [address], [place] [address] Signed DATE OF OPERATION: 12/13/2019 SURGEON: Oleg Maher MD PREOPERATIVE DIAGNOSES: 1. Right colon cancer (January 2018). 2. Internal hemorrhoids. 3. Status post right colectomy. POSTOPERATIVE DIAGNOSES: 1. Lesion/granulation tissue at ileocolonic anastomosis (100 cm). 2. Eanxzbd-rj-zvxbmihf internal hemorrhoids. PROCEDURE: Colonoscopy with cold biopsies. ESTIMATED BLOOD LOSS: None. INDICATIONS: Young is a 59-year-old gentleman, who came to us in the hospital back in January 2018. He had anemia and weakness. 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 Because of his significant medical comorbidities, he ended up at [facility]. He underwent his initial laparoscopic right colectomy with the ileum and the colon brought up through as an ostomy. Subsequently, that was reversed. From what I can tell, he has not had any chemotherapy. He ended up coming back now for followup colonoscopy. In the meantime, he was moved from [facility] to [facility] for adult care. Overall, he, I think is in much better condition than he was previously. Nevertheless, he still has significant medical comorbidities. In the office, I gave him a pamphlet on colonoscopy and we reviewed that together. I reviewed the surgery with him. He understands there is risk to colonoscopy including but not limited to gas bloating, crampy abdominal pain, bleeding, perforation requiring surgery, and missed diagnosis. We also discussed the need for IV conscious sedation with the help of an anesthesia provider given his significant medical comorbidities. He had expressed understanding and wished to proceed. PROCEDURE NOTE: Young was taken into our endoscopy suite and placed in the left lateral decubitus position. He was given monitored anesthesia care per our nurse sap bi architect. A digital rectal exam was performed and this showed some hemorrhoids, but no other findings. The Electronically Signed By: OLEG MAHER MD 12/14/19 0629 PATIENT NAME: YOUNG MADDOX OPERATIVE REPORT DATE OF : 60 REPORT #: [id number] PHYSICIAN: OLEG MAHER MD PCP: PRATEEK CARRERA MD REPORT IS CONFIDENTIAL AND NOT TO BE RELEASED WITHOUT AUTHORIZATION [facility] [address], [place] [address] Signed adult colonoscope was introduced and advanced under direct visualization of camera. It took some extra sedation and abdominal compression due to the protuberance of his abdomen or get the scope around into the proximal colon. We could see the anastomosis at 100 cm. We could see one staple and one silk stitch and next to that what appears to be some granulation tissue. We went ahead and removed that with three bites of the cold biopsy forceps and then we cauterized it gently for hemostasis. No obvious staple underneath. The scope was then slowly withdrawn. We saw no other lesions throughout his entire colon or rectum. Upon retroflexion of the scope, he does have some wrnbife-rd-blokvemj internal hemorrhoids. After this, the gas was suctioned out and the colonoscope removed. Young tolerated his procedure quite well. RECOMMENDATIONS: I will see Young back in my office in 7 to 14 days to review his results. Oleg Maher MD ALB/MODL /[id number] cc: Stephanie Oneal, MD Aly Bland, MD Prateek Carrera, MD Oleg Maher, MD Cong Ervin MD Copies: STEPHANIE ONEAL MD,PRATEEK SAPP MD, MD Electronically Signed By: OLEG MAHER MD 12/14/19 0629 PATIENT NAME: YOUNG MADDOX OPERATIVE REPORT DATE OF : 60 REPORT #: [id number] PHYSICIAN: OLEG MAHER MD PCP: PRATEEK CARRERA MD REPORT IS CONFIDENTIAL AND NOT TO BE RELEASED WITHOUT AUTHORIZATION [address] [address] Signed OLEG MAHER MD ~ Electronically Signed By: OLEG MAHER MD 12/14/19 0629 PATIENT NAME: YOUNG MADDOX OPERATIVE REPORT DATE OF : 60 REPORT #: [id number] PHYSICIAN: OLEG MAHER MD PCP: PRATEEK CARRERA MD REPORT IS CONFIDENTIAL AND NOT TO BE RELEASED WITHOUT AUTHORIZATION
--- NOTE | 2019-12-14 16:19 | PATH ---
[facility] [address], [place] [address] Signed SPECIMEN(S): A COLON BIOPSY SPECIMEN SOURCE: A. COLON BIOPSY CLINICAL HISTORY: History of cancer, right colectomy. Ileocolonic lesion vs. anastomotic staple line. MICROSCOPIC DESCRIPTION: Histologic sections of all submitted blocks are examined by light microscopy. These findings, together with the gross examination, support the pathologic diagnosis. FINAL PATHOLOGIC DIAGNOSIS: Ileocolic anastomosis, biopsy: - Fragments of ulcer and inflammatory type polyp. - Negative for dysplasia or malignancy. COMMENT: As part of [facility]' Quality Improvement Program, this case was reviewed by another member of our pathology staff. NAL:cml:[id number] GROSS DESCRIPTION: The specimen, labeled "SW, colon biopsy," is received in formalin and consists of four pink-clark soft tissue fragments that measure 0.1 to 0.3 cm in greatest dimension. The specimen is entirely submitted in cassette (A1). JS (under the direct supervision of a pathologist) The Gross Description was prepared using a voice recognition system. The report was reviewed for accuracy; however, sound-alike word errors, addition and/or deletions may occur. If there is any question about this report, please contact Client Services. PERFORMING LABORATORY: The technical component was performed by [facility], [address] [place] [address] (Supervisor Wall [employer] Department: Joslyn Loja MD; CLIA# [id number]). [facility] [address] [address] (CLIA# [id number]). PATIENT NAME: FIDE MADDOX PATHOLOGY DATE OF : 60 REPORT #: [id number] PHYSICIAN: RADHAYTE PATHOLOGY PCP: PRATEEK MACK MD REPORT IS CONFIDENTIAL AND NOT TO BE RELEASED WITHOUT AUTHORIZATION [address] [place] [address] Signed Diagnostician: Delaney Madrigal MD Pathologist Electronically Signed 12/14/2019 Copies: ~ PATIENT NAME: FIDE MADDOX PATHOLOGY DATE OF : 60 REPORT #: [id number] PHYSICIAN: INC[facility]TE PATHOLOGY PCP: PRATEEK MACK MD REPORT IS CONFIDENTIAL AND NOT TO BE RELEASED WITHOUT AUTHORIZATION
== END 2019-12-13 10:55 | disposition home or self-care (01) ==
LOC: DS 07:50 → OPS 07:50 → DS 08:45 → OPS 08:45
PROVIDERS: Colon & Rectal Surgery
PROC: 0DBE8ZZ Excision of Large Intestine, Via Natural or Artificial Opening Endoscopic (ICD-10-PCS; principal; 2019-12-13 08:45)
DX: K51.40 Inflammatory polyps of colon without complications (principal); K64.8 Other hemorrhoids; I10 Essential (primary) hypertension; I25.2 Old myocardial infarction; I25.10 Atherosclerotic heart disease of native coronary artery without angina pectoris; E78.00 Pure hypercholesterolemia, unspecified; E11.51 Type 2 diabetes mellitus with diabetic peripheral angiopathy without gangrene; E11.42 Type 2 diabetes mellitus with diabetic polyneuropathy; F32.9 Major depressive disorder, single episode, unspecified; I69.351 Hemiplegia and hemiparesis following cerebral infarction affecting right dominant side; R35.0 Frequency of micturition; Z85.038 Personal history of other malignant neoplasm of large intestine; Z98.0 Intestinal bypass and anastomosis status; Z79.899 Other long term (current) drug therapy; Z95.5 Presence of coronary angioplasty implant and graft; Z98.890 Other specified postprocedural states; Z79.02 Long term (current) use of antithrombotics/antiplatelets; Z79.84 Long term (current) use of 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
CPT/HCPCS: J2704; J7121

== ENCOUNTER 2020-08-09 18:57 | Emergency (ER) | payer MEDICARE, OTHER ==
[~2020-08-09] VITALS: Ht 172.7 cm; Wt 81.7 kg
[~2020-08-09 18:57] MED LIST changes: +CULTURELLE1 EACH PO; +DULCOLAX5 MG PO
--- OUTSIDE RECORDS SUMMARY | 2020-08-09 19:00 | XMS ---
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 Noe VISIT COUNT (12 MO.) 1 ANN Stewart TOTAL 1 NOTE: Visits indicate total known visits. ED/UCC VISIT TRACKING (12 MO.) 08/09/2020 18:57 [facility] [place] TYPE: Emergency COMPLAINT: - MULTIPLE COMPLAINTS INPATIENT VISIT TRACKING (12 MO.) No inpatient visits to display in this time frame [email or web address]
[2020-08-09] MEDS ORDERED: LIPITOR20 MG PO (19:12)
[2020-08-09] MEDS ORDERED: CHLORTHALIDONE25 MG PO (19:13)
--- NOTE | 2020-08-10 14:36 | EKG ---
[facility] [address] [facility] [place] [address] Signed Normal sinus rhythm Prolonged QT Abnormal ECG When compared with ECG of 11-DEC-2019 11:09, T wave inversion less evident in Lateral leads Confirmed by NEEL HADLEY DO ([id number]) on 08/10/2020 2:36:02 PM Electronically Signed By: NEEL HADLEY DO 08/10/20 1436 PATIENT NAME: MADDOXFIDE Electrocardiogram DATE OF : 60 PHYSICIAN: NEEL HADLEY DO REPORT #: [id number] REPORT IS CONFIDENTIAL AND NOT TO BE RELEASED WITHOUT AUTHORIZATION
== END 2020-08-09 21:02 | disposition home or self-care (01) ==
LOC: ED 18:57
DX: R20.2 Paresthesia of skin (principal); I25.2 Old myocardial infarction; Z86.73 Personal history of transient ischemic attack (TIA), and cerebral infarction without residual deficits; E11.40 Type 2 diabetes mellitus with diabetic neuropathy, unspecified; F32.9 Major depressive disorder, single episode, unspecified; D64.9 Anemia, unspecified; F17.200 Nicotine dependence, unspecified, uncomplicated; Z88.0 Allergy status to penicillin; Z79.899 Other long term (current) drug therapy; Z79.84 Long term (current) use of 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
CPT/HCPCS: 70450; 80053; 85025; 85610; 85730; 93005; 93010; 99284-25

== ENCOUNTER 2024-09-14 00:44 | Emergency (ER) | payer MEDICARE, OTHER ==
[~2024-09-14] VITALS: Ht 172.7 cm; Wt 85.9 kg
[~2024-09-14 00:44] MED LIST changes: +ACTOS15 MG PO; +CALCIUM500 M1 PO; +CHILDREN'S ASPI81 M1 PO; +CHLORTHALIDONE25 MG PO; +FUROSEMIDE20 MG PO; -GLIPIZIDE10 MG; +GLIPIZIDE10 MG PO; +ISOSORBIDE MONO30 MG PO; +LO-DOSE ASPIRIN81 MG PO; +LOSARTAN POTAS100 MG PO; +METFORMIN HCL500 MG PO; +NORVASC10 MG PO; +ZYLOPRIM100 MG PO
--- OUTSIDE RECORDS SUMMARY | 2024-09-14 00:48 | XMS ---
PreManage Notification: FIDE MADDOX Security Authorization Specialist Events No recent Security Events currently on file CRITERIA MET - Group Notification CARE PROVIDERS Selma Muhammad Annealer Helper/Environmental Compliance Engineer 08/11/2024-Current PHONE: [phone] [facility] 06/27/2019-Current PHONE: Unknown DIMPLE [facility] Internal Medicine 06/08/2018-Current PHONE: Unknown STACE[facility] PRIMARY Clinic/Center: Primary Care [facility] PHONE: [phone] KEELY [facility] Current PHONE: Unknown Serge has no Care Guidelines for this patient. Noe VISIT COUNT (12 MO.) [address] [facility] TOTAL 3 NOTE: Visits indicate total known visits. ED/UCC VISIT TRACKING (12 MO.) 09/14/2024 00:44 [facility] TYPE: Emergency COMPLAINT: - CHEST PAIN 04/23/2024 21:17 [facility] TYPE: Emergency COMPLAINT: - CHEST PAIN DIAGNOSES: - Allergy status to penicillin - Chest pain, unspecified - Heart failure, unspecified - air and hydronic balancing technician (current) use of aspirin - air and hydronic balancing technician (current) use of 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 - Nicotine dependence, unspecified, uncomplicated - Old myocardial infarction - Other intermediate (current) drug therapy - Personal history of transient ischemic attack (TIA), and cerebral infarction without residual deficits - Presence of aortocoronary bypass graft - Presence of coronary angioplasty implant and graft - Type 2 diabetes mellitus without complications 04/06/2024 20:18 [facility] TYPE: Emergency COMPLAINT: - POSS STROKE INPATIENT VISIT TRACKING (12 MO.) 04/06/2024 20:19 [facility] TYPE: Observation COMPLAINT: - TIA/HYPOGLYCEMIA DIAGNOSES: - Allergy status to penicillin - Anesthesia of skin - Chronic kidney disease, stage 3 unspecified - Do not resuscitate - intermediate (current) use of aspirin - Nicotine dependence, unspecified, uncomplicated - Old myocardial infarction - Other intermediate (current) drug therapy - Type 2 diabetes mellitus with diabetic chronic kidney disease - Type 2 diabetes mellitus with diabetic neuropathy, unspecified - Type 2 diabetes mellitus with hypoglycemia without coma [email or web address]
[2024-09-14] MEDS ORDERED: NITROGLYCERIN PACKET TOP ONE (01:00)
[2024-09-14 01:03] LABS: EOSINOPHILS 5.9 % (0-6); HEMATOCRIT 30.3 % (35.0-50.0); LYMPHOCYTES 16.4 % (24-44); MCH 27.9 (27-36); MCV 84.3 fl (81-99); MONOCYTES 9.7 % (0-12); PLATELET COUNT 112 K/uL (140-440); RDW 16.3 (10.5-15.0)
[2024-09-14 01:13] LABS: INR 0.99 (0.80-1.30); PROTIME 12.4 Sec (11.2-14.2)
[2024-09-14 01:25] LABS: ALBUMIN 3.5 g/dL (3.4-5.0); ALBUMIN/GLOBULIN RATIO 1.17 (1.1-2.4); ANION GAP 10.7 (7-21); BILIRUBIN, TOTAL 0.3 ng/dL (0.2-1.0); BUN/CREATININE RATIO 22.17 (6.0-28.6); CALCIUM 8.4 mg/dL (8.5-10.1); CREATININE, SERUM 2.3 mg/dL (0.70-1.30); MAGNESIUM 1.8 mg/dL (1.8-2.4); POTASSIUM 3.7 mmol/L (3.5-5.1); PROTEIN, TOTAL 6.5 g/dL (6.4-8.2)
[2024-09-14] MEDS ORDERED: FUROSEMIDE 40 MG/4 ML VIAL IV ONE (02:00)
[2024-09-14] MEDS ORDERED: LASIX20 MG PO (02:29)
[2024-09-14 03:00] VITALS: BP 155/65
--- NOTE | 2024-09-14 19:34 | EKG ---
[facility] [address] [place] [address] Signed Normal sinus rhythm Prolonged QT Abnormal ECG When compared with ECG of 23-APR-2024 21:15, premature ventricular complexes are no longer present Confirmed by Yang Jimenez MD ([id number]) on 09/14/2024 7:34:34 PM Electronically Signed By: YANG JIMENEZ MD 09/14/241933 PATIENT NAME: TANFIDE ERNA Electrocardiogram DATE OF : 60 PHYSICIAN: YANG JIMENEZ MD REPORT #: [id number] REPORT IS CONFIDENTIAL AND NOT TO BE RELEASED WITHOUT AUTHORIZATION
== END 2024-09-14 05:05 | disposition home or self-care (01) ==
LOC: ED 00:44
PROVIDERS: Family Medicine
DX: I11.0 Hypertensive heart disease with heart failure (principal); I50.9 Heart failure, unspecified; E11.9 Type 2 diabetes mellitus without complications; I25.2 Old myocardial infarction; F17.200 Nicotine dependence, unspecified, uncomplicated; Z79.82 Long term (current) use of aspirin; Z79.899 Other long term (current) drug therapy; Z88.0 Allergy status to penicillin
CPT/HCPCS: 36415; 71045; 80053; 83036; 83735; 83880; 84484; 85025; 85610; 93005; 93010; 96374; 99285-25; J1940

== ENCOUNTER 2025-02-08 23:46 | Emergency (ER) | payer MEDICARE, OTHER ==
[~2025-02-08] VITALS: Ht 172.7 cm; Wt 84.0 kg
[~2025-02-08 23:46] MED LIST changes: +LASIX20 MG PO
--- OUTSIDE RECORDS SUMMARY | 2025-02-08 23:53 | XMS ---
PreManage Notification: FIDE MADDOX Security Apprenticeship Training Representative Events No recent Security Events currently on file CRITERIA MET - Group Notification CARE PROVIDERS [facility] 06/27/2019-Current PHONE: Unknown DIM[facility] Internal Medicine 06/08/2018-Current PHONE: Unknown STACE[facility] PRIMARY Clinic/Center: Primary Care [facility] PHONE: [phone] Selma Muhammad Outpatient Scheduler/Emergency Response Technician Current PHONE: [phone] KEELY [facility] Current PHONE: Unknown [facility] Current PHONE: Unknown Serge has no Care Guidelines for this patient. EMalathi VISIT COUNT (12 MO.) 4 ANN Stewart TOTAL 4 NOTE: Visits indicate total known visits. ED/UCC VISIT TRACKING (12 MO.) 02/08/2025 23:47 [facility] TYPE: Emergency COMPLAINT: - CHEST PAIN 09/14/2024 00:44 [facility] TYPE: Emergency COMPLAINT: - CHEST PAIN DIAGNOSES: - Allergy status to penicillin - Chest pain, unspecified - Heart failure, unspecified - Hypertensive heart disease with heart failure - USP (current) use of aspirin - Nicotine dependence, unspecified, uncomplicated - Old myocardial infarction - Other terminal carman (current) drug therapy - Type 2 diabetes mellitus without complications 04/23/2024 21:17 [facility] TYPE: Emergency COMPLAINT: - CHEST PAIN DIAGNOSES: - Allergy status to penicillin - Chest pain, unspecified - Heart failure, unspecified - USP (current) use of aspirin - superintendent terminal (current) use of 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 - Nicotine dependence, unspecified, uncomplicated - Old myocardial infarction - Other alf (current) drug therapy - Personal history of [...] 3 unspecified - Do not resuscitate - USP (current) use of aspirin - Nicotine dependence, unspecified, uncomplicated - Old myocardial infarction - Other terminal carman (current) drug therapy - Type 2 diabetes mellitus with diabetic chronic kidney disease - Type 2 diabetes mellitus with diabetic neuropathy, unspecified - Type 2 diabetes mellitus with hypoglycemia without coma [email or web address]
[2025-02-09] MEDS ORDERED: FEROSUL325 MG PO (00:03)
[2025-02-09 00:10] LABS: BASOPHILS 1.1 % (0-2); EOSINOPHILS 5.6 % (0-6); HEMATOCRIT 23.8 % (35.0-50.0); HEMOGLOBIN 7.8 g/dL (12.0-18.0); LYMPHOCYTES 12.8 % (24-44); MCH 26.7 (27-36); MCHC 32.9 g/dl (30-36); MCV 80.9 fl (81-99); MONOCYTES 7.7 % (0-12); NEUTROPHILS 72.8 % (39-80); PLATELET COUNT 129 K/uL (140-440); RBC 2.94 M/ul (4.3-5.7)
[2025-02-09 00:11] LABS: INR 1.06 (0.80-1.30); PROTIME 13.2 Sec (11.2-14.2)
[2025-02-09 00:24] LABS: ALBUMIN 3.5 g/dL (3.4-5.0); ALBUMIN/GLOBULIN RATIO 1.17 (1.1-2.4); ANION GAP 10.8 (7-21); BILIRUBIN, TOTAL 0.3 mg/dL (0.2-1.0); BUN/CREATININE RATIO 22.72 (6.0-28.6); CALCIUM 8.4 mg/dL (8.5-10.1); CREATININE, SERUM 2.42 mg/dL (0.70-1.30); POTASSIUM 3.8 mmol/L (3.5-5.1); PROTEIN, TOTAL 6.5 g/dL (6.4-8.2)
[2025-02-09] MEDS ORDERED: FERROUS SULFAT325 MG PO (00:35)
[2025-02-09] MEDS ORDERED: VITAMIN C500 M4 PO (00:35)
[2025-02-09] MEDS ORDERED: NITROFURANTOIN MONOHYD MACROCR 100 MG HOME.PACK PO ONE (00:45)
[2025-02-09] MEDS ORDERED: PHENAZOPYRIDINE HCL 100 MG TAB PO ONE (00:45)
[2025-02-09 07:11] VITALS: BP 138/62
--- NOTE | 2025-02-09 12:45 | EKG ---
[facility] [address] [place] [address] Signed Sinus rhythm with 1st degree AV block ST \T\ T wave abnormality, consider lateral ischemia Prolonged QT Abnormal ECG When compared with ECG of 14-SEP-2024 00:49, NH interval has increased T wave inversion more evident in Lateral leads Confirmed by Coy Rivers DO ([id number]) on 02/09/2025 12:45:18 PM Electronically Signed By: COY RIVERS DO 02/09/25 1245 PATIENT NAME: TANFIDE ERNA Electrocardiogram DATE OF : 60 PHYSICIAN: COY RIVERS DO REPORT #: [id number] REPORT IS CONFIDENTIAL AND NOT TO BE RELEASED WITHOUT AUTHORIZATION
== END 2025-02-09 07:12 | disposition home or self-care (01) ==
LOC: ED 23:46
PROVIDERS: Family Medicine
DX: R07.89 Other chest pain (principal); I25.2 Old myocardial infarction; I10 Essential (primary) hypertension; E11.40 Type 2 diabetes mellitus with diabetic neuropathy, unspecified; F17.200 Nicotine dependence, unspecified, uncomplicated; Z88.1 Allergy status to other antibiotic agents
CPT/HCPCS: 36415; 71045; 80053; 83735; 83880; 84484; 85025; 85610; 93005; 93010; 99285-25